=== PATIENT | female | born 1935 | race Caucasian/White ===

== ENCOUNTER → 2016-08-30 | Outpatient (CLI) | payer OTHER, MEDICAID ==
[~2016-08-30] MED LIST: ALBUAER3 IN; AMLO5TAB2 PO; ASPI81CH43 PO; ATOR20TA50 PO; DOCU100C8 PO; FLUT250M2 INH; GABA-494 PO; GLIM4TAB42 PO; HYDR200T36 PO; LOR05T PO; LOSA100T27 PO; MET50T PO; METF-312 PO; NIT04P TD; PANT40T PO; TRAM-300 PO
[2016-08-30 11:33] LABS: Basophils # (auto) 0 uL; Basophils % (auto) 0.8 % (0.0-2.0); Eosinophils # (auto) 0.2 uL; Eosinophils % (auto) 4.1 % (0.0-7.0); Hematocrit 34.8 % (36.0-46.0); Hemoglobin 11.5 g/dL (12.2-16.2); Lymphocytes # (auto) 0.7 uL; Lymphocytes % (auto) 16.3 % (10.0-50.0); Mean Corpuscular Hemoglobin 30.5 pg (28.0-32.0); Mean Corpuscular Volume 92.3 fL (80.0-100.0); Monocytes # (auto) 0.3 uL; Monocytes % (auto) 7.3 % (0.0-12.0); Neutrophils # (auto) 3.1 uL; Neutrophils % (auto) 71.5 % (37.0-80.0); Platelet Count (auto) 158 10^3/uL (140-450); Red Cell Distribution Width 14.8 % (11.6-16.0); White Blood Cell 4.3 10^3/uL (4.4-10.8)
[2016-08-30 12:03] LABS: Albumin 3.7 g/dL (3.4-5.0); BUN/Creatinine Ratio 34.7; Bilirubin, Total 0.4 mg/dL (0.2-1.0); Calcium 9.7 mg/dL (8.5-10.1); Potassium 4.6 mmol/L (3.5-5.1); Total Protein 6.7 g/dL (6.4-8.2)
== END | disposition home or self-care (01) ==
LOC: LAB 10:37
PROVIDERS: ATTEND Internal Medicine
DX: D61.818 Other pancytopenia (principal)
CPT/HCPCS: 36415; 80053; 82728; 83540; 83550; 83615; 85025

== ENCOUNTER 2016-09-26 17:53 | Emergency (ER) | payer OTHER, MEDICAID ==
[~2016-09-26] VITALS: Ht 165.1 cm; Wt 81.6 kg
[2016-09-26 18:20] VITALS: BP 158/68
== END 2016-09-26 22:06 | disposition left against medical advice (07) ==
LOC: ER 17:57
DX: R04.0 Epistaxis (principal); Z53.21 Procedure and treatment not carried out due to patient leaving prior to being seen by health care provider

== ENCOUNTER → 2016-11-21 | Outpatient (CLI) | payer OTHER, MEDICAID ==
[~2016-11-21] MED LIST changes: -METF-312 PO; +METF-370 PO
[2016-11-21 09:39] LABS: Basophils # (auto) 0 uL; Basophils % (auto) 0.7 % (0.0-2.0); Eosinophils # (auto) 0.2 uL; Hematocrit 37.2 % (36.0-46.0); Hemoglobin 12.2 g/dL (12.2-16.2); Lymphocytes # (auto) 0.7 uL; Lymphocytes % (auto) 17.7 % (10.0-50.0); Mean Corpuscular Hemoglobin 29.2 pg (28.0-32.0); Mean Corpuscular Hgb Conc. 32.8 g/dL (32.0-36.0); Mean Platelet Volume 9.9 fL (7.4-10.4); Monocytes # (auto) 0.3 uL; Monocytes % (auto) 6.7 % (0.0-12.0); Neutrophils # (auto) 2.7 uL; Neutrophils % (auto) 69.9 % (37.0-80.0); Platelet Count (auto) 149 10^3/uL (140-450); Red Cell Distribution Width 16.7 % (11.6-16.0); White Blood Cell 3.9 10^3/uL (4.4-10.8)
[2016-11-21 09:48] LABS: Albumin 3.6 g/dL (3.4-5.0); BUN/Creatinine Ratio 33.6; Bilirubin, Total 0.5 mg/dL (0.2-1.0); Calcium 9.5 mg/dL (8.5-10.1); Potassium 4.6 mmol/L (3.5-5.1); Total Protein 6.6 g/dL (6.4-8.2)
== END | disposition home or self-care (01) ==
LOC: LAB 08:12
PROVIDERS: ATTEND Internal Medicine
DX: E11.9 Type 2 diabetes mellitus without complications (principal); I10 Essential (primary) hypertension; I25.10 Atherosclerotic heart disease of native coronary artery without angina pectoris
CPT/HCPCS: 36415; 80053; 80061; 82607; 83036; 83540; 84439; 84443; 85025; 85652

== ENCOUNTER → 2017-07-11 | Outpatient (CLI) | payer OTHER, MEDICAID ==
[~2017-07-11] MED LIST changes: -GABA-494 PO; +GABA100C9 PO; -LOR05T PO; +LORA-654 PO
[2017-07-11 10:48] LABS: Basophils # (auto) 0 uL; Basophils % (auto) 0.8 % (0.0-2.0); Eosinophils # (auto) 0.1 uL; Eosinophils % (auto) 3.6 % (0.0-7.0); Hematocrit 38.3 % (36.0-46.0); Hemoglobin 12.5 g/dL (12.2-16.2); Lymphocytes # (auto) 0.8 uL; Lymphocytes % (auto) 19.7 % (10.0-50.0); Mean Corpuscular Hgb Conc. 32.6 g/dL (32.0-36.0); Monocytes # (auto) 0.3 uL; Monocytes % (auto) 8.1 % (0.0-12.0); Neutrophils # (auto) 2.6 uL; Neutrophils % (auto) 67.8 % (37.0-80.0); Nucleated Red Blood Cells % 0.1 %; Platelet Count (auto) 118 10^3/uL (140-450); Red Blood Cells 4.17 10^6/uL (4.0-5.20); Red Cell Distribution Width 14.4 % (11.8-14.3); White Blood Cell 3.8 10^3/uL (4.4-10.8)
[2017-07-11 10:55] LABS: Urine Bacteria FEW /hpf (None Seen); Urine Blood Negative /uL (Negative); Urine Mucus FEW (None Seen); Urine Specific Gravity 1.021 (1.001-1.035); Urine WBC 9 /hpf (0 - 5)
[2017-07-11 11:08] LABS: BUN/Creatinine Ratio 23.6; Bilirubin, Total 0.6 mg/dL (0.2-1.0); Calcium 9.1 mg/dL (8.5-10.1); Potassium 4.6 mmol/L (3.5-5.1); Total Protein 7.3 g/dL (6.4-8.2); Uric Acid 5.5 mg/dL (2.6-6.0)
== END | disposition home or self-care (01) ==
LOC: LAB 10:21
PROVIDERS: ATTEND Internal Medicine
DX: E11.9 Type 2 diabetes mellitus without complications (principal); E78.00 Pure hypercholesterolemia, unspecified
CPT/HCPCS: 36415; 80053; 81001; 82043; 83036; 83721; 83970; 84550; 85025

== ENCOUNTER → 2017-10-08 | Outpatient (CLI) | payer OTHER, MEDICAID ==
[2017-10-08 14:50] LABS: Basophils # (auto) 0 uL; Basophils % (auto) 0.6 % (0.0-2.0); Eosinophils # (auto) 0.1 uL; Eosinophils % (auto) 3.2 % (0.0-7.0); Hematocrit 37.4 % (36.0-46.0); Hemoglobin 12.3 g/dL (12.2-16.2); Lymphocytes # (auto) 0.6 uL; Lymphocytes % (auto) 14.4 % (10.0-50.0); Mean Corpuscular Hemoglobin 29.9 pg (28.0-32.0); Mean Corpuscular Hgb Conc. 32.8 g/dL (32.0-36.0); Mean Corpuscular Volume 91.3 fL (80.0-100.0); Monocytes # (auto) 0.4 uL; Monocytes % (auto) 8.5 % (0.0-12.0); Neutrophils # (auto) 3.3 uL; Neutrophils % (auto) 73.3 % (37.0-80.0); Nucleated Red Blood Cells % 0.2 %; Platelet Count (auto) 106 10^3/uL (140-450); Red Cell Distribution Width 16.4 % (11.8-14.3); White Blood Cell 4.5 10^3/uL (4.4-10.8)
[2017-10-08 15:37] LABS: Potassium 4.6 mmol/L (3.5-5.1)
[2017-10-08 15:42] LABS: Albumin 3.9 g/dL (3.4-5.0); BUN/Creatinine Ratio 28.1; Calcium 9.4 mg/dL (8.5-10.1); Magnesium 1.9 mg/dL (1.6-2.6)
[2017-10-08 15:44] LABS: Bilirubin, Total 0.4 mg/dL (0.2-1.0); Total Protein 7.1 g/dL (6.4-8.2)
== END | disposition home or self-care (01) ==
LOC: LAB 14:22
PROVIDERS: ATTEND Internal Medicine
DX: E11.22 Type 2 diabetes mellitus with diabetic chronic kidney disease (principal); I12.9 Hypertensive chronic kidney disease with stage 1 through stage 4 chronic kidney disease, or unspecified chronic kidney disease; N18.3 Chronic kidney disease, stage 3 (moderate); D61.818 Other pancytopenia; E78.00 Pure hypercholesterolemia, unspecified; J44.9 Chronic obstructive pulmonary disease, unspecified; E78.5 Hyperlipidemia, unspecified
CPT/HCPCS: 36415; 80053; 82728; 83036; 83540; 83615; 83735; 85025

== ENCOUNTER → 2018-02-11 | Outpatient (CLI) | payer OTHER, MEDICAID ==
[2018-02-11 14:13] LABS: Basophils # (auto) 0 uL; Basophils % (auto) 0.6 % (0.0-2.0); Eosinophils # (auto) 0 uL; Eosinophils % (auto) 0.8 % (0.0-7.0); Hematocrit 36.4 % (36.0-46.0); Lymphocytes # (auto) 0.4 uL; Lymphocytes % (auto) 7.9 % (10.0-50.0); Mean Corpuscular Hemoglobin 30.3 pg (28.0-32.0); Mean Corpuscular Hgb Conc. 32.9 g/dL (32.0-36.0); Mean Corpuscular Volume 92.1 fL (80.0-100.0); Monocytes # (auto) 0.5 uL; Monocytes % (auto) 10.6 % (0.0-12.0); Neutrophils % (auto) 80.1 % (37.0-80.0); Platelet Count (auto) 134 10^3/uL (140-450); Red Blood Cells 3.95 10^6/uL (4.0-5.20)
[2018-02-11 15:36] LABS: Albumin 3.6 g/dL (3.4-5.0); BUN/Creatinine Ratio 20.5; Bilirubin, Total 0.5 mg/dL (0.2-1.0); Calcium 9.5 mg/dL (8.5-10.1); Potassium 4.4 mmol/L (3.5-5.1); Total Protein 7.5 g/dL (6.4-8.2); Uric Acid 4.3 mg/dL (2.6-6.0)
== END | disposition home or self-care (01) ==
LOC: LAB 13:34
PROVIDERS: ATTEND Internal Medicine
DX: I13.0 Hypertensive heart and chronic kidney disease with heart failure and stage 1 through stage 4 chronic kidney disease, or unspecified chronic kidney disease (principal); E11.22 Type 2 diabetes mellitus with diabetic chronic kidney disease; N18.3 Chronic kidney disease, stage 3 (moderate); M06.4 Inflammatory polyarthropathy; J44.9 Chronic obstructive pulmonary disease, unspecified
CPT/HCPCS: 36415; 80053; 83036; 84550; 85025; 86225; 86235; 87086; 87088; 87186

== ENCOUNTER → 2018-03-04 | Outpatient (CLI) | payer OTHER, MEDICAID ==
[~2018-03-04] MED LIST changes: +AMLO5TAB13 PO; -AMLO5TAB2 PO; +LOSA-49 PO; -LOSA100T27 PO
[2018-03-04 13:37] LABS: Basophils # (auto) 0 uL; Basophils % (auto) 0.6 % (0.0-2.0); Eosinophils # (auto) 0.1 uL; Eosinophils % (auto) 3.4 % (0.0-7.0); Hematocrit 38.3 % (36.0-46.0); Hemoglobin 12.3 g/dL (12.2-16.2); Lymphocytes # (auto) 0.6 uL; Lymphocytes % (auto) 15.8 % (10.0-50.0); Mean Corpuscular Hgb Conc. 32.2 g/dL (32.0-36.0); Mean Corpuscular Volume 93.2 fL (80.0-100.0); Monocytes # (auto) 0.3 uL; Monocytes % (auto) 7.8 % (0.0-12.0); Neutrophils % (auto) 72.4 % (37.0-80.0); Platelet Count (auto) 121 10^3/uL (140-450); Red Blood Cells 4.11 10^6/uL (4.0-5.20); White Blood Cell 4.1 10^3/uL (4.4-10.8)
[2018-03-04 14:27] LABS: Albumin 3.7 g/dL (3.4-5.0); BUN/Creatinine Ratio 29.1; Bilirubin, Total 0.4 mg/dL (0.2-1.0); Calcium 9.7 mg/dL (8.5-10.1); Potassium 4.4 mmol/L (3.5-5.1); Total Protein 7.2 g/dL (6.4-8.2)
[2018-03-04 14:36] LABS: % Iron Saturation 24.7 % (15-50)
== END | disposition home or self-care (01) ==
LOC: LAB 13:11
PROVIDERS: ATTEND Internal Medicine
DX: D61.818 Other pancytopenia (principal)
CPT/HCPCS: 36415; 80053; 83540; 83550; 83615; 85025

== ENCOUNTER → 2018-05-27 | Outpatient (CLI) | payer OTHER, MEDICAID | END | disposition home or self-care (01) | LOC: XYW 08:43 | PROVIDERS: ATTEND Internal Medicine | DX: Z01.818 Encounter for other preprocedural examination (principal); M17.11 Unilateral primary osteoarthritis, right knee; S83.249A Other tear of medial meniscus, current injury, unspecified knee, initial encounter; X58.XXXA Exposure to other specified factors, initial encounter; Y93.9 Activity, unspecified; Y92.9 Unspecified place or not applicable; Y99.9 Unspecified external cause status | CPT/HCPCS: 93306 ==

== ENCOUNTER → 2018-06-04 | Outpatient (CLI) | payer OTHER, MEDICAID | END | disposition home or self-care (01) | LOC: XY 07:57 | PROVIDERS: ATTEND Internal Medicine | DX: I65.29 Occlusion and stenosis of unspecified carotid artery (principal); R09.89 Other specified symptoms and signs involving the circulatory and respiratory systems; I12.9 Hypertensive chronic kidney disease with stage 1 through stage 4 chronic kidney disease, or unspecified chronic kidney disease; N18.9 Chronic kidney disease, unspecified; I50.9 Heart failure, unspecified | CPT/HCPCS: 93886 ==

== ENCOUNTER 2018-07-28 12:35 | Inpatient (IN) | payer OTHER, MEDICAID ==
[~2018-07-28] VITALS: Ht 162.6 cm; Wt 98.0 kg
[2018-07-28 13:35] LABS: Basophils # (auto) 0 uL; Basophils % (auto) 0.5 % (0.0-2.0); Eosinophils # (auto) 0 uL; Eosinophils % (auto) 0.7 % (0.0-7.0); Hematocrit 34.1 % (36.0-46.0); Lymphocytes # (auto) 0.4 uL; Lymphocytes % (auto) 6.1 % (10.0-50.0); Mean Corpuscular Hemoglobin 27.3 pg (28.0-32.0); Mean Corpuscular Hgb Conc. 32.1 g/dL (32.0-36.0); Monocytes # (auto) 0.5 uL; Neutrophils # (auto) 5.5 uL; Neutrophils % (auto) 84.7 % (37.0-80.0); Platelet Count (auto) 150 10^3/uL (140-450); Red Blood Cells 4.01 10^6/uL (4.0-5.20); Red Cell Distribution Width 16.5 % (11.8-14.3); White Blood Cell 6.5 10^3/uL (4.4-10.8)
[2018-07-28 13:53] LABS: Albumin 3.4 g/dL (3.4-5.0); Calcium 9.3 mg/dL (8.5-10.1); Magnesium 2.2 mg/dL (1.6-2.6); Potassium 3.5 mmol/L (3.5-5.1)
[2018-07-28 14:02] LABS: BUN/Creatinine Ratio 14.9; Bilirubin, Total 0.7 mg/dL (0.2-1.0); Total Protein 7.4 g/dL (6.4-8.2)
[2018-07-28] MEDS ORDERED: LEVOFLOXACIN 500MG 100 ML IV ONE (15:45)
[2018-07-28 17:14] LABS: Lactic Acid w/Reflex 2.9 mmol/L (0.4-2.0)
[2018-07-28] MEDS ORDERED: NITROGLYCERIN 0.4 MG SL TAB SL PRN (17:30)
[2018-07-28] MEDS ORDERED: traMADol HCL 50 MG TAB PO PRN (17:30)
[2018-07-28] MEDS ORDERED: MORPHINE SULFATE 4 MG/ML SYR/VIAL IV PRN (17:30)
[2018-07-28] MEDS ORDERED: DEXTROSE (50%) 50ML SYRG IV PRN (17:30)
[2018-07-28] MEDS: cefTRIAXone 1GM/50ML D5W 50 ML IV SCH (20:15)
[2018-07-28] MEDS: AZITHROMYCIN 500MG/ 250ML 250 ML IV SCH (20:27)
[2018-07-28 20:35] VITALS: BP 139/86
--- NOTE | 2018-07-28 20:35 | NUR ---
Telemetry admit from ER LAI DECKER admitted to Telemetry unit after SBAR received. Patient oriented to Mallory Leal, primary RN, unit, room, bed, and unit policies regarding patient care and visiting hours. Patient now on continuous telemetry monitoring, tele box #5 and telemetry reading on arrival to unit is SR [id number] with Twave depression . Patient placed on bedside oxygen, weighed by bed scale and encouraged to call if they need something. Patient is in bed, bed is locked in lowest position, bed rails up x2, head of bed is up >30 for safety precautions. Bedside table within reach, call light within reach. All questions and concerns addressed, patient verbalized understanding.
--- NOTE | 2018-07-28 20:45 | NUR ---
PATIENT IS WEARING DIAPER INFORMED PATIENT THAT THIS IS A [facility]APER [facility] AND THE SKIN BREAK RISKS ASSOCIATED WITH WEARING A DIAPER. PATIENT VERBALIZED UNDERSTANDING BUT REFUSED TO TAKE IT OFF. SHE STATES THAT SHE USES IT FOR SECURITY DURING THE NIGHT. PATIENT IS AMBULATORY WITH ASSIST AND USES THE TOILET. INSTRUCTED PATIENT TO USE CALL LIGHT FOR ASSISTANCE TO THE BATHROOM.
--- NOTE | 2018-07-28 21:00 | NUR ---
PATIENT VALUABLES IN SAFE PER PATIENT REQUEST [place] COUNTED AND VERIFIED WITH SECOND NURSE, CREDIT CARDS, CHECKBOOK, WALLET, CA ID, AND WATCHED PLACED IN PERSONAL BELONGINGS ENVELOPE AND SEALED. PERSONAL FINANCIAL REPRESENTATIVE RECEIVED VALUABLES AND SIGNED FORM. FORM IN HARD CHART, COPY GIVEN TO PATIENT.
[2018-07-28 21:51] VITALS: BP 139/86
[2018-07-28] MEDS: ATORVASTATIN 20 MG TAB PO SCH (22:22)
[2018-07-28] MEDS: METOPROLOL TARTRATE 25 MG TAB PO SCH (22:22)
[2018-07-28] MEDS: HYDROXYCHLOROQUINE SULFATE 200 MG TAB PO SCH (22:22)
[2018-07-28] MEDS: InsuLIN REG 1unit/0.01ml Soln (100units/ml) SC SCH (22:23)
[2018-07-28] MEDS: ACCU-CHEK COMFORT CURVE STRIP VI SCH (22:23)
[2018-07-29 05:47] VITALS: BP 142/69
[2018-07-29] MEDS: InsuLIN REG 1unit/0.01ml Soln (100units/ml) SC SCH ×4 (06:39→22:10)
[2018-07-29] MEDS: ACCU-CHEK COMFORT CURVE STRIP VI SCH ×4 (06:39→22:09)
[2018-07-29 07:21] LABS: Basophils # (auto) 0 uL; Basophils % (auto) 0.7 % (0.0-2.0); Eosinophils # (auto) 0.1 uL; Eosinophils % (auto) 2.5 % (0.0-7.0); Hematocrit 31.7 % (36.0-46.0); Hemoglobin 10.3 g/dL (12.2-16.2); Lymphocytes # (auto) 0.7 uL; Lymphocytes % (auto) 13.1 % (10.0-50.0); Mean Corpuscular Hemoglobin 27.1 pg (28.0-32.0); Mean Corpuscular Hgb Conc. 32.3 g/dL (32.0-36.0); Mean Corpuscular Volume 83.8 fL (80.0-100.0); Monocytes # (auto) 0.5 uL; Monocytes % (auto) 9.1 % (0.0-12.0); Neutrophils # (auto) 3.8 uL; Neutrophils % (auto) 74.6 % (37.0-80.0); Platelet Count (auto) 137 10^3/uL (140-450); Red Blood Cells 3.79 10^6/uL (4.0-5.20); Red Cell Distribution Width 16.1 % (11.8-14.3); White Blood Cell 5.1 10^3/uL (4.4-10.8)
[2018-07-29 07:29] LABS: Potassium 4.2 mmol/L (3.5-5.1)
--- NOTE | 2018-07-29 07:30 | NUR ---
OPENING NOTE Assumed care of patient from NOC RN. Patient awake and alert with no S/S of distress/SOB or pain. Instructed on POC and to call for assist PRN, verbalized understanding. Bed in lowest, locked position with side rails up x2. Fall precautions in place and call light within reach. Will continue to monitor for changes Q1hr and PRN.
[2018-07-29 07:34] LABS: BUN/Creatinine Ratio 23.4; Calcium 9.1 mg/dL (8.5-10.1)
[2018-07-29 09:10] VITALS: BP 139/63
[2018-07-29] MEDS ORDERED: amLODIPine BESYLATE 5 MG TAB PO SCH (10:00)
[2018-07-29] MEDS: METOPROLOL TARTRATE 25 MG TAB PO SCH ×2 (10:00→22:02)
[2018-07-29] MEDS: ASPirin 81 mg TAB PO SCH (10:04)
[2018-07-29] MEDS: cefTRIAXone 1GM/50ML D5W 50 ML IV SCH (10:04)
[2018-07-29] MEDS: HYDROXYCHLOROQUINE SULFATE 200 MG TAB PO SCH ×2 (10:05→22:00)
[2018-07-29] MEDS: PANTOPRAZOLE 40 MG TAB PO SCH (10:05)
[2018-07-29] MEDS: HYDROcodone-ACET 7.5/325MG TAB PO PRN ×2 (10:15→19:57)
--- NOTE | 2018-07-29 11:24 | NUR ---
IV REMOVAL/INSERTION IV DC'd with clean sterile technique, catheter fully intact. Pressure dressing applied to site. IV access obtained, via clean sterile technique by inserting 22 gauge catheter at left wrist after 1 attempt. IV secured properly. No trauma to site. Patient tolerated well.
[2018-07-29] MEDS: AZITHROMYCIN 500MG/ 250ML 250 ML IV SCH (12:23)
[2018-07-29 13:06] VITALS: BP 139/65
[2018-07-29 17:00] VITALS: BP 115/65
--- NOTE | 2018-07-29 18:22 | NUR ---
URINE Urine specimen collected and sent to lab via bullet.
--- NOTE | 2018-07-29 19:35 | NUR ---
CLOSING NOTE Endorsed care of patient to NOC Deanne OVALLE.
--- NOTE | 2018-07-29 19:55 | NUR ---
RECEIVED PT FROM DAY RN POC REVIEWED
[2018-07-29 20:04] LABS: Urine Bacteria NONE SEEN /hpf (None Seen); Urine Blood Negative /uL (Negative); Urine Specific Gravity 1.016 (1.001-1.035); Urine WBC 4 /hpf (0 - 5)
[2018-07-29 21:50] VITALS: BP 134/50
[2018-07-29] MEDS: ATORVASTATIN 20 MG TAB PO SCH (22:02)
--- NOTE | 2018-07-29 23:28 | NUR ---
PT C/O ITCHING NO S/S OF REDNESS, WILL NOTIFY HOSPITALIST PT WANTS BENADRYL
--- NOTE | 2018-07-29 23:40 | NUR ---
ORDER RECEIVED FOR PO BENADRYL
[2018-07-30] MEDS ORDERED: diphenhdrAMINE HCL 25 MG CAP PO PRN (00:30)
[2018-07-30] MEDS: LORazepam 0.5 MG TAB PO PRN ×2 (00:33→22:38)
--- NOTE | 2018-07-30 00:41 | NUR ---
RESTING WITH EYES CLOSED NO C/O ITCHING AT THIS TIME
[2018-07-30 05:00] VITALS: BP 159/62
[2018-07-30 07:00] LABS: BUN/Creatinine Ratio 25.2; Calcium 9.4 mg/dL (8.5-10.1); Potassium 4.5 mmol/L (3.5-5.1)
[2018-07-30] MEDS: InsuLIN REG 1unit/0.01ml Soln (100units/ml) SC SCH ×3 (07:01→17:30)
[2018-07-30] MEDS: ACCU-CHEK COMFORT CURVE STRIP VI SCH ×4 (07:02→22:50)
--- NOTE | 2018-07-30 07:04 | NUR ---
report given to am nurse poc reviewed
--- NOTE | 2018-07-30 07:20 | NUR ---
Opening Shift Note Assumed care of patient, awake and alert. No S/S of distress/SOB or pain. Instructed on POC and to call for assist PRN, will continue to monitor for changes Q1hr and PRN.
[2018-07-30 08:00] VITALS: BP 140/66
[2018-07-30 08:32] VITALS: BP 140/66
[2018-07-30] MEDS: cefTRIAXone 1GM/50ML D5W 50 ML IV SCH (08:59)
[2018-07-30] MEDS: amLODIPine BESYLATE 5 MG TAB PO SCH (09:04)
[2018-07-30] MEDS: PANTOPRAZOLE 40 MG TAB PO SCH (09:04)
[2018-07-30] MEDS: METOPROLOL TARTRATE 25 MG TAB PO SCH ×2 (09:05→22:00)
[2018-07-30] MEDS: HYDROXYCHLOROQUINE SULFATE 200 MG TAB PO SCH ×2 (09:05→22:35)
[2018-07-30] MEDS: ASPirin 81 mg TAB PO SCH (09:05)
--- NOTE | 2018-07-30 09:45 | NUR ---
IV removal IV DC'd with clean sterile technique, catheter fully intact. Pressure dressing applied to site. Patient tolerated well. NOTE: [] IV insertion IV access obtained, via clean sterile technique by inserting 22 gauge catheter at right wrist after 2 attempts. IV secured properly. No trauma to site. Patient tolerated well. NOTE: []
[2018-07-30] MEDS: AZITHROMYCIN 500MG/ 250ML 250 ML IV SCH (11:31)
[2018-07-30] MEDS: HYDROcodone-ACET 7.5/325MG TAB PO PRN ×2 (14:06→22:47)
[2018-07-30 14:45] VITALS: BP 142/76
[2018-07-30] MEDS: THROAT LOZENGES(CEPASTAT) MT PRN ×2 (14:51→22:50)
[2018-07-30 16:48] VITALS: BP 131/82
--- NOTE | 2018-07-30 19:53 | NUR ---
RECEIVED PT FROM DAY RN POC REVIEWED
[2018-07-30 22:00] VITALS: BP 133/48
[2018-07-30] MEDS: ATORVASTATIN 20 MG TAB PO SCH (22:34)
--- NOTE | 2018-07-30 23:15 | NUR ---
THROAT LOZENGERS GIVEN ORDERED, C/O SORE THROAT
[2018-07-31] MEDS: InsuLIN REG 1unit/0.01ml Soln (100units/ml) SC SCH ×3 (02:24→12:04)
[2018-07-31 05:00] VITALS: BP 146/52
[2018-07-31] MEDS: ACCU-CHEK COMFORT CURVE STRIP VI SCH ×2 (06:49→12:04)
--- NOTE | 2018-07-31 07:06 | NUR ---
report given to am nurse poc reviewed
[2018-07-31 08:00] VITALS: BP 149/82
[2018-07-31 09:00] VITALS: BP 149/82
[2018-07-31] MEDS: cefTRIAXone 1GM/50ML D5W 50 ML IV SCH (09:16)
[2018-07-31] MEDS: PANTOPRAZOLE 40 MG TAB PO SCH (09:16)
[2018-07-31] MEDS: METOPROLOL TARTRATE 25 MG TAB PO SCH (09:17)
[2018-07-31] MEDS: amLODIPine BESYLATE 5 MG TAB PO SCH (09:17)
[2018-07-31] MEDS: ASPirin 81 mg TAB PO SCH (09:17)
[2018-07-31] MEDS: HYDROXYCHLOROQUINE SULFATE 200 MG TAB PO SCH (09:18)
[2018-07-31] MEDS: AZITHROMYCIN 500MG/ 250ML 250 ML IV SCH (10:37)
--- NOTE | 2018-07-31 13:12 | NUR ---
Discharge from Med Surg Discharge instructions given as ordered. Encourage to follow up with PMD as instructed. All questions and concerns addressed. Patient verbalized understanding. IV removed with catheter intact, pressure dressing applied. Items in safe returned to patient. Patient taken to vehicle via wheelchair with all personal belongings, accompanied by staff and family member. No distress noted at time of departure.
== END 2018-07-31 13:12 | disposition home or self-care (01) | DRG 193 ==
LOC: ER 12:42 → TELE 17:36 → TELE-WESTW 20:32 → WEST WING 07-30 23:02
PROVIDERS: ADMIT Internal Medicine; ATTEND Internal Medicine
DX: J18.9 Pneumonia, unspecified organism (principal); N17.0 Acute kidney failure with tubular necrosis; I50.42 Chronic combined systolic (congestive) and diastolic (congestive) heart failure; J44.0 Chronic obstructive pulmonary disease with (acute) lower respiratory infection; I13.0 Hypertensive heart and chronic kidney disease with heart failure and stage 1 through stage 4 chronic kidney disease, or unspecified chronic kidney disease; D64.9 Anemia, unspecified; E11.22 Type 2 diabetes mellitus with diabetic chronic kidney disease; E11.65 Type 2 diabetes mellitus with hyperglycemia; E66.9 Obesity, unspecified; E78.5 Hyperlipidemia, unspecified; I25.10 Atherosclerotic heart disease of native coronary artery without angina pectoris; M06.4 Inflammatory polyarthropathy; N18.9 Chronic kidney disease, unspecified; R32 Unspecified urinary incontinence; Z68.37 Body mass index [BMI] 37.0-37.9, adult; Z79.4 Long term (current) use of insulin; Z86.73 Personal history of transient ischemic attack (TIA), and cerebral infarction without residual deficits; Z95.1 Presence of aortocoronary bypass graft; Z90.710 Acquired absence of both cervix and uterus; Z90.49 Acquired absence of other specified parts of digestive tract; Z88.5 Allergy status to narcotic agent; Z88.6 Allergy status to analgesic agent; Z88.2 Allergy status to sulfonamides; Z88.8 Allergy status to other drugs, medicaments and biological substances
CPT/HCPCS: 36415; 71045; 71046; 80048; 80053; 81001; 82962; 83036; 83605; 83735; 84443; 84484; 85025; 87040; 87086; 93005; 93306; 96365; 96368; 97163; G0378; J0696; J1815; J1956

== ENCOUNTER → 2018-08-14 | Outpatient (CLI) | payer OTHER, MEDICAID ==
[2018-08-14 11:45] LABS: Basophils # (auto) 0 uL; Eosinophils # (auto) 0.2 uL; Hemoglobin 11.2 g/dL (12.2-16.2); Lymphocytes # (auto) 0.6 uL; Lymphocytes % (auto) 13.1 % (10.0-50.0)
[2018-08-14 11:50] LABS: Basophils % (auto) 0.8 % (0.0-2.0); Eosinophils % (auto) 4.6 % (0.0-7.0); Hematocrit 35.4 % (36.0-46.0); Mean Corpuscular Hemoglobin 26.7 pg (28.0-32.0); Mean Corpuscular Hgb Conc. 31.6 g/dL (32.0-36.0); Mean Corpuscular Volume 84.6 fL (80.0-100.0); Monocytes # (auto) 0.4 uL; Monocytes % (auto) 7.6 % (0.0-12.0); Neutrophils # (auto) 3.5 uL; Neutrophils % (auto) 73.9 % (37.0-80.0); Platelet Count (auto) 144 10^3/uL (140-450); Red Blood Cells 4.18 10^6/uL (4.0-5.20); Red Cell Distribution Width 17.7 % (11.8-14.3); White Blood Cell 4.8 10^3/uL (4.4-10.8)
[2018-08-14 12:51] LABS: Albumin 3.7 g/dL (3.4-5.0); Potassium 4.6 mmol/L (3.5-5.1)
[2018-08-14 12:54] LABS: BUN/Creatinine Ratio 23.3; Bilirubin, Total 0.4 mg/dL (0.2-1.0); Calcium 9.8 mg/dL (8.5-10.1); Total Protein 7.2 g/dL (6.4-8.2)
[2018-08-14 13:01] LABS: % Iron Saturation 10.8 % (15-50)
== END | disposition home or self-care (01) ==
LOC: LAB 11:23
PROVIDERS: ATTEND Internal Medicine
DX: D61.818 Other pancytopenia (principal)
CPT/HCPCS: 36415; 80053; 83540; 83550; 83615; 85025

== ENCOUNTER → 2019-01-04 | Outpatient (CLI) | payer OTHER, MEDICAID ==
[~2019-01-04] MED LIST changes: +ALBUTEROL SULF 2.5 MG/0.5ML(0.5%) NEB SOLN ONE; -AMLO5TAB13 PO; +AMLO5TAB15 PO; -LORA-654 PO; +LORA0.5T12 PO; +LOSA-39 PO; -LOSA-49 PO
== END | disposition home or self-care (01) ==
LOC: RT 08:53
PROVIDERS: ATTEND Internal Medicine Pulmonary Disease
DX: J45.909 Unspecified asthma, uncomplicated (principal)
CPT/HCPCS: 94010; J7611

== ENCOUNTER → 2019-01-22 | Outpatient (CLI) | payer OTHER, MEDICAID ==
[~2019-01-22] MED LIST changes: -ALBUTEROL SULF 2.5 MG/0.5ML(0.5%) NEB SOLN ONE
[2019-01-22 09:53] LABS: Basophils # (auto) 0 uL; Basophils % (auto) 0.9 % (0.0-2.0); Eosinophils # (auto) 0.2 uL; Eosinophils % (auto) 4.4 % (0.0-7.0); Hematocrit 38.2 % (36.0-46.0); Hemoglobin 12.5 g/dL (12.2-16.2); Lymphocytes # (auto) 0.6 uL; Lymphocytes % (auto) 11.8 % (10.0-50.0); Mean Corpuscular Hemoglobin 29.7 pg (28.0-32.0); Mean Corpuscular Hgb Conc. 32.8 g/dL (32.0-36.0); Mean Corpuscular Volume 90.7 fL (80.0-100.0); Monocytes # (auto) 0.4 uL; Monocytes % (auto) 8.3 % (0.0-12.0); Neutrophils # (auto) 3.5 uL; Neutrophils % (auto) 74.6 % (37.0-80.0); Platelet Count (auto) 129 10^3/uL (140-450); Red Blood Cells 4.22 10^6/uL (4.0-5.20); Red Cell Distribution Width 16.7 % (11.8-14.3); White Blood Cell 4.7 10^3/uL (4.4-10.8)
[2019-01-22 10:14] LABS: Urine Bacteria FEW /hpf (None Seen); Urine Blood Negative /uL (Negative); Urine Mucus FEW (None Seen); Urine Specific Gravity 1.018 (1.001-1.035); Urine WBC 34 /hpf (0 - 5)
[2019-01-22 10:27] LABS: Potassium 4.8 mmol/L (3.5-5.1)
[2019-01-22 10:28] LABS: Free T4 (Free Thyroxine) 1.18 ng/dL (0.89-1.76)
[2019-01-22 10:40] LABS: Albumin 3.9 g/dL (3.4-5.0); BUN/Creatinine Ratio 28.3; Bilirubin, Total 0.5 mg/dL (0.2-1.0); Calcium 9.9 mg/dL (8.5-10.1); Total Protein 7.2 g/dL (6.4-8.2)
[2019-01-22 10:43] LABS: % Iron Saturation 17.2 % (15-50)
== END | disposition home or self-care (01) ==
LOC: LAB 08:56
PROVIDERS: ATTEND Internal Medicine
DX: E11.9 Type 2 diabetes mellitus without complications (principal); I10 Essential (primary) hypertension; D61.818 Other pancytopenia
CPT/HCPCS: 36415; 80053; 80061; 81001; 82043; 82607; 83036; 83540; 83550; 84439; 84443; 85025; 85652

== ENCOUNTER → 2019-06-01 | Outpatient (CLI) | payer OTHER, MEDICAID ==
[~2019-06-01] MED LIST changes: -NIT04P TD; +[UNRECOGNIZED DRUG - CODE] TD
[2019-06-01 16:22] LABS: Basophils # (auto) 0 uL; Basophils % (auto) 0.9 % (0.0-2.0); Eosinophils # (auto) 0.2 uL; Eosinophils % (auto) 5.4 % (0.0-7.0); Hematocrit 34.4 % (36.0-46.0); Hemoglobin 11.3 g/dL (12.2-16.2); Lymphocytes # (auto) 0.7 uL; Lymphocytes % (auto) 15.8 % (10.0-50.0); Mean Corpuscular Hgb Conc. 32.8 g/dL (32.0-36.0); Mean Corpuscular Volume 91.6 fL (80.0-100.0); Monocytes # (auto) 0.4 uL; Neutrophils % (auto) 68.9 % (37.0-80.0); Nucleated Red Blood Cells % 0.1 %; Platelet Count (auto) 138 10^3/uL (140-450); Red Blood Cells 3.76 10^6/uL (4.0-5.20); Red Cell Distribution Width 14.7 % (11.8-14.3); White Blood Cell 4.4 10^3/uL (4.4-10.8)
[2019-06-01 16:50] LABS: Albumin 3.7 g/dL (3.4-5.0); Potassium 4.9 mmol/L (3.5-5.1)
[2019-06-01 16:53] LABS: % Iron Saturation 11.2 % (15-50)
[2019-06-01 16:55] LABS: BUN/Creatinine Ratio 22.1; Bilirubin, Total 0.3 mg/dL (0.2-1.0)
[2019-06-01 16:59] LABS: Ferritin 13.4 ng/mL (10-322)
[2019-06-01 17:00] LABS: Folate (Folic Acid) 11.9 ng/mL (5.38-24)
== END | disposition home or self-care (01) ==
LOC: LAB 15:26
PROVIDERS: ATTEND Internal Medicine
DX: D61.818 Other pancytopenia (principal); D64.9 Anemia, unspecified
CPT/HCPCS: 36415; 80053; 82607; 82728; 82746; 83540; 83550; 85025

== ENCOUNTER → 2019-07-05 | Outpatient (CLI) | payer OTHER, MEDICAID | END | disposition home or self-care (01) | LOC: LAB 10:25 | PROVIDERS: ATTEND Internal Medicine | DX: E11.21 Type 2 diabetes mellitus with diabetic nephropathy (principal) | CPT/HCPCS: 36415; 83036 ==

== ENCOUNTER → 2019-12-10 | Outpatient (CLI) | payer OTHER, MEDICAID ==
[~2019-12-10] MED LIST changes: -LORA0.5T12 PO; +LORA0.5T20 PO
[2019-12-10 16:17] LABS: Basophils # (auto) 0.1 10 ^3/uL (0-0.2); Basophils % (auto) 1.2 % (0.0-2.0); Eosinophils # (auto) 0.2 10 ^3/uL (0-0.8); Eosinophils % (auto) 5.2 % (0.0-7.0); Hematocrit 41.3 % (36.0-46.0); Hemoglobin 13.3 g/dL (12.2-16.2); Lymphocytes # (auto) 0.7 10 ^3/uL (0.4-5.4); Lymphocytes % (auto) 16.9 % (10.0-50.0); Mean Corpuscular Hemoglobin 29.7 pg (28.0-32.0); Mean Corpuscular Hgb Conc. 32.2 g/dL (32.0-36.0); Mean Corpuscular Volume 92.3 fL (80.0-100.0); Monocytes # (auto) 0.4 10 ^3/uL (0-1.3); Monocytes % (auto) 9.4 % (0.0-12.0); Neutrophils # (auto) 2.8 10 ^3/uL (1.6-8.6); Neutrophils % (auto) 67.3 % (37.0-80.0); Nucleated Red Blood Cells % 0.1 %; Platelet Count (auto) 150 10^3/uL (140-450); Red Blood Cells 4.47 10^6/uL (4.0-5.20); Red Cell Distribution Width 18.4 % (11.8-14.3); White Blood Cell 4.2 10^3/uL (4.4-10.8)
[2019-12-10 16:39] LABS: Albumin 3.9 g/dL (3.4-5.0); Calcium 9.6 mg/dL (8.5-10.1); Potassium 4.8 mmol/L (3.5-5.1)
[2019-12-10 16:44] LABS: BUN/Creatinine Ratio 22.8
[2019-12-10 16:50] LABS: Bilirubin, Total 0.4 mg/dL (0.2-1.0); Total Protein 7.5 g/dL (6.4-8.2)
[2019-12-13 13:14] LABS: Urine Bacteria MANY /hpf (None Seen); Urine Blood Negative /uL (Negative); Urine Specific Gravity 1.022 (1.001-1.035); Urine WBC 8 /hpf (0 - 5)
== END | disposition home or self-care (01) ==
LOC: LAB 15:52
PROVIDERS: ATTEND Internal Medicine
DX: E11.9 Type 2 diabetes mellitus without complications (principal); I10 Essential (primary) hypertension; M19.90 Unspecified osteoarthritis, unspecified site
CPT/HCPCS: 36415; 80053; 81001; 83036; 85025; 85652; 86200; 86225; 86235

== ENCOUNTER 2020-05-19 13:06 | Emergency (ER) | payer OTHER, MEDICAID ==
[~2020-05-19] VITALS: Ht 162.6 cm; Wt 99.8 kg
[2020-05-19] MEDS ORDERED: SODIUM CHLORIDE 0.9% 1,000 ML IV ONE (13:30)
[2020-05-19 14:31] LABS: Basophils # (auto) 0 10 ^3/uL (0-0.2); Basophils % (auto) 0.4 % (0.0-2.0); Eosinophils # (auto) 0 10 ^3/uL (0-0.8); Eosinophils % (auto) 0.1 % (0.0-7.0); Hematocrit 37.6 % (36.0-46.0); Hemoglobin 12.2 g/dL (12.2-16.2); Lymphocytes # (auto) 0.4 10 ^3/uL (0.4-5.4); Mean Corpuscular Hemoglobin 30.1 pg (28.0-32.0); Mean Corpuscular Hgb Conc. 32.5 g/dL (32.0-36.0); Mean Corpuscular Volume 92.8 fL (80.0-100.0); Monocytes # (auto) 0.7 10 ^3/uL (0-1.3); Monocytes % (auto) 7.3 % (0.0-12.0); Neutrophils % (auto) 88.2 % (37.0-80.0); Nucleated Red Blood Cells % 0.1 %; Platelet Count (auto) 120 10^3/uL (140-450); Red Blood Cells 4.05 10^6/uL (4.0-5.20); Red Cell Distribution Width 15.5 % (11.8-14.3); White Blood Cell 9.1 10^3/uL (4.4-10.8)
[2020-05-19 14:46] LABS: Albumin 3.6 g/dL (3.4-5.0); Calcium 9.1 mg/dL (8.5-10.1); Potassium 4.5 mmol/L (3.5-5.1)
[2020-05-19 14:52] LABS: BUN/Creatinine Ratio 19.6; Bilirubin, Total 0.4 mg/dL (0.2-1.0); Total Protein 6.9 g/dL (6.4-8.2)
[2020-05-19 14:59] VITALS: BP 148/65
== END 2020-05-19 17:12 | disposition home or self-care (01) ==
LOC: ER 13:06
DX: J18.9 Pneumonia, unspecified organism (principal); N20.0 Calculus of kidney; E11.22 Type 2 diabetes mellitus with diabetic chronic kidney disease; I13.0 Hypertensive heart and chronic kidney disease with heart failure and stage 1 through stage 4 chronic kidney disease, or unspecified chronic kidney disease; N18.9 Chronic kidney disease, unspecified; I50.89 Other heart failure; J44.9 Chronic obstructive pulmonary disease, unspecified; E78.5 Hyperlipidemia, unspecified; Z86.73 Personal history of transient ischemic attack (TIA), and cerebral infarction without residual deficits; Z20.828 Contact with and (suspected) exposure to other viral communicable diseases; Z90.49 Acquired absence of other specified parts of digestive tract; Z90.710 Acquired absence of both cervix and uterus; Z88.2 Allergy status to sulfonamides; Z88.6 Allergy status to analgesic agent
CPT/HCPCS: 36415; 71045; 74176; 80053; 83690; 84484; 85025; 87426; 96360; 96361; 99285; J7030

== ENCOUNTER → 2020-10-27 | Outpatient (CLI) | payer OTHER, MEDICAID ==
[~2020-10-27] MED LIST changes: +AMLO-489 PO; -AMLO5TAB15 PO; +DOCU100C10 PO; -DOCU100C8 PO; +NITR0.4D14 TD; -[UNRECOGNIZED DRUG - CODE] TD
[2020-10-27 10:13] LABS: Basophils # (auto) 0 10 ^3/uL (0-0.2); Basophils % (auto) 0.8 % (0.0-2.0); Eosinophils # (auto) 0.1 10 ^3/uL (0-0.8); Eosinophils % (auto) 2.7 % (0.0-7.0); Hemoglobin 12.4 g/dL (12.2-16.2); Lymphocytes # (auto) 0.6 10 ^3/uL (0.4-5.4); Lymphocytes % (auto) 15.2 % (10.0-50.0); Mean Corpuscular Hemoglobin 30.8 pg (28.0-32.0); Mean Corpuscular Hgb Conc. 33.5 g/dL (32.0-36.0); Mean Corpuscular Volume 91.8 fL (80.0-100.0); Monocytes # (auto) 0.3 10 ^3/uL (0-1.3); Monocytes % (auto) 7.2 % (0.0-12.0); Neutrophils # (auto) 3.1 10 ^3/uL (1.6-8.6); Neutrophils % (auto) 74.1 % (37.0-80.0); Nucleated Red Blood Cells % 0.1 %; Platelet Count (auto) 132 10^3/uL (140-450); Red Blood Cells 4.03 10^6/uL (4.0-5.20); Red Cell Distribution Width 15.8 % (11.8-14.3); White Blood Cell 4.1 10^3/uL (4.4-10.8)
[2020-10-27 10:16] LABS: Albumin 3.7 g/dL (3.4-5.0); Calcium 9.7 mg/dL (8.5-10.1); Potassium 4.3 mmol/L (3.5-5.1)
[2020-10-27 10:21] LABS: BUN/Creatinine Ratio 25.2; Bilirubin, Total 0.4 mg/dL (0.2-1.0); Total Protein 6.6 g/dL (6.4-8.2)
[2020-10-27 13:44] LABS: Free T4 (Free Thyroxine) 1.11 ng/dL (0.89-1.76)
== END | disposition home or self-care (01) ==
LOC: LAB 09:43
PROVIDERS: ATTEND Internal Medicine
DX: E11.9 Type 2 diabetes mellitus without complications (principal); I10 Essential (primary) hypertension
CPT/HCPCS: 36415; 80053; 80061; 82607; 83036; 84439; 84443; 85025; 85652

== ENCOUNTER 2020-11-03 16:44 | Emergency (ER) | payer OTHER, MEDICAID ==
[~2020-11-03] VITALS: Ht 165.1 cm; Wt 90.7 kg
[2020-11-03] MEDS ORDERED: SODIUM CHLORIDE 0.9% 500 ML IVB ONE (17:15)
[2020-11-03] MEDS ORDERED: ONDANSETRON HCL 4 MG/2 ML VIAL IV ONE (17:15)
[2020-11-03] MEDS ORDERED: MORPHINE SULFATE 4 MG/ML SYR/VIAL IV ONE (17:15)
[2020-11-03 18:17] VITALS: BP 141/54
[2020-11-03 18:40] LABS: Basophils # (auto) 0 10 ^3/uL (0-0.2); Basophils % (auto) 0.6 % (0.0-2.0); Eosinophils # (auto) 0.1 10 ^3/uL (0-0.8); Eosinophils % (auto) 2.4 % (0.0-7.0); Hematocrit 34.7 % (36.0-46.0); Hemoglobin 11.8 g/dL (12.2-16.2); Lymphocytes # (auto) 0.5 10 ^3/uL (0.4-5.4); Lymphocytes % (auto) 12.4 % (10.0-50.0); Mean Corpuscular Hemoglobin 31.2 pg (28.0-32.0); Mean Corpuscular Volume 91.9 fL (80.0-100.0); Monocytes # (auto) 0.4 10 ^3/uL (0-1.3); Monocytes % (auto) 10.5 % (0.0-12.0); Neutrophils # (auto) 2.9 10 ^3/uL (1.6-8.6); Neutrophils % (auto) 74.1 % (37.0-80.0); Nucleated Red Blood Cells % 0.3 %; Platelet Count (auto) 113 10^3/uL (140-450); Red Blood Cells 3.78 10^6/uL (4.0-5.20); Red Cell Distribution Width 15.8 % (11.8-14.3); White Blood Cell 3.9 10^3/uL (4.4-10.8)
[2020-11-03 18:40] LABS: Urine Bacteria MOD /hpf (None Seen); Urine Blood Negative /uL (Negative); Urine Mucus FEW (None Seen); Urine Specific Gravity 1.017 (1.001-1.035); Urine WBC 45 /hpf (0 - 5)
[2020-11-03 18:51] LABS: Albumin 3.5 g/dL (3.4-5.0); BUN/Creatinine Ratio 18.8; Calcium 9.5 mg/dL (8.5-10.1); Potassium 4.3 mmol/L (3.5-5.1)
[2020-11-03 18:53] LABS: Bilirubin, Total 0.4 mg/dL (0.2-1.0); Total Protein 6.5 g/dL (6.4-8.2)
== END 2020-11-03 19:49 | disposition home or self-care (01) ==
LOC: ER 16:44
DX: N39.0 Urinary tract infection, site not specified (principal); R10.31 Right lower quadrant pain; F41.9 Anxiety disorder, unspecified; J44.9 Chronic obstructive pulmonary disease, unspecified; E78.5 Hyperlipidemia, unspecified; I11.0 Hypertensive heart disease with heart failure; I50.9 Heart failure, unspecified; E11.9 Type 2 diabetes mellitus without complications; Z88.5 Allergy status to narcotic agent; Z88.6 Allergy status to analgesic agent; Z88.2 Allergy status to sulfonamides; Z79.82 Long term (current) use of aspirin; Z79.84 Long term (current) use of oral hypoglycemic drugs; Z79.899 Other long term (current) drug therapy; Z86.73 Personal history of transient ischemic attack (TIA), and cerebral infarction without residual deficits; Z90.49 Acquired absence of other specified parts of digestive tract; Z90.710 Acquired absence of both cervix and uterus
CPT/HCPCS: 36415; 74176; 80053; 81001; 82150; 83690; 85025; 93005; 96361; 96374; 96375; 99285; J2270; J2405; J7040

== ENCOUNTER → 2020-12-26 | Outpatient (CLI) | payer OTHER, MEDICAID | END | disposition home or self-care (01) | LOC: XYW 15:55 | PROVIDERS: ATTEND Internal Medicine | DX: I07.1 Rheumatic tricuspid insufficiency (principal); R00.1 Bradycardia, unspecified; I11.9 Hypertensive heart disease without heart failure | CPT/HCPCS: 93306 ==

== ENCOUNTER → 2020-12-27 | Outpatient (CLI) | payer OTHER, MEDICAID | END | disposition home or self-care (01) | LOC: LAB 08:53 | PROVIDERS: ATTEND Internal Medicine | DX: Z01.812 Encounter for preprocedural laboratory examination (principal) | CPT/HCPCS: 36415; 82565; 84520 ==

== ENCOUNTER → 2021-01-16 | Outpatient (CLI) | payer OTHER, MEDICAID | END | disposition home or self-care (01) | LOC: LAB 15:38 | PROVIDERS: ATTEND Internal Medicine | DX: E11.9 Type 2 diabetes mellitus without complications (principal); I10 Essential (primary) hypertension | CPT/HCPCS: 36415; 82088; 82384; 83036 ==

== ENCOUNTER → 2021-03-26 | Outpatient (CLI) | payer OTHER, MEDICAID ==
[2021-03-26 10:04] LABS: Basophils # (auto) 0 10 ^3/uL (0-0.2); Basophils % (auto) 0.6 % (0.0-2.0); Eosinophils # (auto) 0.1 10 ^3/uL (0-0.8); Eosinophils % (auto) 1.7 % (0.0-7.0); Hematocrit 39.3 % (36.0-46.0); Hemoglobin 12.7 g/dL (12.2-16.2); Lymphocytes # (auto) 0.4 10 ^3/uL (0.4-5.4); Lymphocytes % (auto) 7.8 % (10.0-50.0); Mean Corpuscular Hemoglobin 29.9 pg (28.0-32.0); Mean Corpuscular Hgb Conc. 32.4 g/dL (32.0-36.0); Mean Corpuscular Volume 92.6 fL (80.0-100.0); Monocytes # (auto) 0.5 10 ^3/uL (0-1.3); Monocytes % (auto) 9.2 % (0.0-12.0); Neutrophils # (auto) 4.2 10 ^3/uL (1.6-8.6); Neutrophils % (auto) 80.7 % (37.0-80.0); Red Blood Cells 4.24 10^6/uL (4.0-5.20); Red Cell Distribution Width 15.1 % (11.8-14.3); White Blood Cell 5.2 10^3/uL (4.4-10.8)
[2021-03-26 10:34] LABS: Potassium 4.4 mmol/L (3.5-5.1)
[2021-03-26 10:46] LABS: Albumin 3.8 g/dL (3.4-5.0); Bilirubin, Total 0.5 mg/dL (0.2-1.0); Total Protein 6.8 g/dL (6.4-8.2); Uric Acid 5.2 mg/dL (2.6-6.0)
== END | disposition home or self-care (01) ==
LOC: LAB 09:38
PROVIDERS: ATTEND Internal Medicine
DX: I12.9 Hypertensive chronic kidney disease with stage 1 through stage 4 chronic kidney disease, or unspecified chronic kidney disease (principal); E11.22 Type 2 diabetes mellitus with diabetic chronic kidney disease; N18.30 Chronic kidney disease, stage 3 unspecified; R91.1 Solitary pulmonary nodule; D69.6 Thrombocytopenia, unspecified
CPT/HCPCS: 36415; 80053; 82607; 83036; 83615; 83970; 84550; 85025

== ENCOUNTER → 2021-07-02 | Outpatient (CLI) | payer OTHER ==
[2021-07-02 13:08] LABS: Basophils # (auto) 0 10 ^3/uL (0-0.2); Basophils % (auto) 0.9 % (0.0-2.0); Eosinophils # (auto) 0.1 10 ^3/uL (0-0.8); Eosinophils % (auto) 2.1 % (0.0-7.0); Hematocrit 36.4 % (36.0-46.0); Hemoglobin 11.9 g/dL (12.2-16.2); Lymphocytes # (auto) 0.6 10 ^3/uL (0.4-5.4); Lymphocytes % (auto) 11.8 % (10.0-50.0); Mean Corpuscular Hemoglobin 29.3 pg (28.0-32.0); Mean Corpuscular Hgb Conc. 32.7 g/dL (32.0-36.0); Mean Corpuscular Volume 89.7 fL (80.0-100.0); Monocytes # (auto) 0.4 10 ^3/uL (0-1.3); Monocytes % (auto) 8.1 % (0.0-12.0); Neutrophils # (auto) 3.8 10 ^3/uL (1.6-8.6); Neutrophils % (auto) 77.1 % (37.0-80.0); Nucleated Red Blood Cells % 0.1 %; Red Blood Cells 4.05 10^6/uL (4.0-5.20); Red Cell Distribution Width 14.9 % (11.8-14.3); White Blood Cell 4.9 10^3/uL (4.4-10.8)
[2021-07-02 14:02] LABS: Urine Bacteria MANY /hpf (None Seen); Urine Blood Negative /uL (Negative); Urine Hyaline Cast MOD /lpf (0 - 2); Urine Mucus FEW (None Seen); Urine Specific Gravity 1.021 (1.001-1.035); Urine WBC 84 /hpf (0 - 5)
[2021-07-02 14:03] LABS: Calcium 9.9 mg/dL (8.5-10.1); Potassium 4.7 mmol/L (3.5-5.1)
[2021-07-02 14:09] LABS: Albumin 3.9 g/dL (3.4-5.0); BUN/Creatinine Ratio 22.3; Bilirubin, Total 0.4 mg/dL (0.2-1.0)
== END | disposition home or self-care (01) ==
LOC: LAB 12:21
PROVIDERS: ATTEND Internal Medicine
DX: E11.9 Type 2 diabetes mellitus without complications (principal); M25.50 Pain in unspecified joint
CPT/HCPCS: 36415; 80053; 81001; 83036; 84439; 84443; 85025; 85652

== ENCOUNTER → 2021-09-19 | Outpatient (CLI) | payer OTHER, MEDICAID ==
[2021-09-19 11:36] LABS: Basophils # (auto) 0.1 10 ^3/uL (0-0.2); Basophils % (auto) 1.4 % (0.0-2.0); Eosinophils # (auto) 0.1 10 ^3/uL (0-0.8); Eosinophils % (auto) 3.7 % (0.0-7.0); Hematocrit 33.3 % (36.0-46.0); Lymphocytes # (auto) 0.6 10 ^3/uL (0.4-5.4); Lymphocytes % (auto) 15.7 % (10.0-50.0); Mean Corpuscular Hemoglobin 28.6 pg (28.0-32.0); Mean Corpuscular Volume 86.6 fL (80.0-100.0); Monocytes # (auto) 0.3 10 ^3/uL (0-1.3); Monocytes % (auto) 8.6 % (0.0-12.0); Neutrophils # (auto) 2.6 10 ^3/uL (1.6-8.6); Neutrophils % (auto) 70.6 % (37.0-80.0); Nucleated Red Blood Cells % 0.1 %; Red Blood Cells 3.85 10^6/uL (4.0-5.20); Red Cell Distribution Width 15.5 % (11.8-14.3); White Blood Cell 3.7 10^3/uL (4.4-10.8)
[2021-09-19 12:08] LABS: Potassium 4.6 mmol/L (3.5-5.1)
[2021-09-19 12:13] LABS: Albumin 3.5 g/dL (3.4-5.0); BUN/Creatinine Ratio 22.5; Bilirubin, Total 0.4 mg/dL (0.2-1.0); Calcium 9.8 mg/dL (8.5-10.1); Uric Acid 5.8 mg/dL (2.6-6.0)
== END | disposition home or self-care (01) ==
LOC: LAB 10:57
PROVIDERS: ATTEND Internal Medicine
DX: E11.22 Type 2 diabetes mellitus with diabetic chronic kidney disease (principal); N18.30 Chronic kidney disease, stage 3 unspecified; D64.9 Anemia, unspecified
CPT/HCPCS: 36415; 80053; 82607; 83036; 83540; 83615; 84550; 85025

== ENCOUNTER → 2021-10-04 | Outpatient (CLI) | payer OTHER, MEDICAID ==
[~2021-10-04] MED LIST changes: +BUPIVACAINE HCL 0.25% P/F 10 ML VIAL ONE; +GADOTERATE MEG 10 MMOL/20ml INJ (0.5MMOL/ml) IV ONE; +LIDOCAINE 2%HCL (LOCAL ANESTH.) INJ 10ml MDV ONE; +methylPREDNISolone ACETATE 80 MG/ML VL ONE
== END | disposition home or self-care (01) ==
LOC: XYW 14:05
PROVIDERS: ATTEND Orthopaedic Surgery Sports Medicine
DX: M19.031 Primary osteoarthritis, right wrist (principal)
CPT/HCPCS: 73100; 76000; A9575; J1040; J2001; J3490

== ENCOUNTER → 2021-11-07 | Outpatient (CLI) | payer OTHER ==
[~2021-11-07] MED LIST changes: -BUPIVACAINE HCL 0.25% P/F 10 ML VIAL ONE; -GADOTERATE MEG 10 MMOL/20ml INJ (0.5MMOL/ml) IV ONE; -LIDOCAINE 2%HCL (LOCAL ANESTH.) INJ 10ml MDV ONE; -methylPREDNISolone ACETATE 80 MG/ML VL ONE
[2021-11-07 11:33] LABS: Basophils # (auto) 0 10 ^3/uL (0-0.2); Basophils % (auto) 0.7 % (0.0-2.0); Eosinophils # (auto) 0.1 10 ^3/uL (0-0.8); Eosinophils % (auto) 1.8 % (0.0-7.0); Hematocrit 36.2 % (36.0-46.0); Hemoglobin 11.8 g/dL (12.2-16.2); Lymphocytes # (auto) 0.7 10 ^3/uL (0.4-5.4); Lymphocytes % (auto) 13.2 % (10.0-50.0); Mean Corpuscular Hemoglobin 28.8 pg (28.0-32.0); Mean Corpuscular Hgb Conc. 32.6 g/dL (32.0-36.0); Mean Corpuscular Volume 88.2 fL (80.0-100.0); Monocytes # (auto) 0.3 10 ^3/uL (0-1.3); Neutrophils # (auto) 3.8 10 ^3/uL (1.6-8.6); Neutrophils % (auto) 77.3 % (37.0-80.0); Red Cell Distribution Width 16.6 % (11.8-14.3)
[2021-11-07 12:09] LABS: Albumin 3.8 g/dL (3.4-5.0); Anion Gap 6 (5-15); Blood Urea Nitrogen 27 mg/dL (7-18); Carbon Dioxide 23 mmol/L (21-32); Chloride 112 mmol/L (98-107); Glucose 131 mg/dL (74-106); Potassium 4.8 mmol/L (3.5-5.1); Sodium 141 mmol/L (136-145)
[2021-11-07 12:12] LABS: Alanine Aminotransferase 20 U/L (13-56); Alkaline Phosphatase 48 U/L (45-117); Aspartate Aminotransferase 15 U/L (15-37); Bilirubin, Total 0.4 mg/dL (0.2-1.0); CRP High Sensitivity < 0.02 mg/dL (< 0.3); GFR African American 53 mL/min; GFR Non-African American 44 mL/min
== END | disposition home or self-care (01) ==
LOC: LAB 11:10
PROVIDERS: ATTEND Internal Medicine Rheumatology
DX: M32.10 Systemic lupus erythematosus, organ or system involvement unspecified (principal)
CPT/HCPCS: 36415; 80053; 82232; 85025; 85652; 86141; 86160

== ENCOUNTER → 2022-01-18 | Outpatient (CLI) | payer OTHER, MEDICAID ==
[~2022-01-18] MED LIST changes: +HYDR-4902 PO
[2022-01-18 10:21] LABS: Basophils # (auto) 0 10 ^3/uL (0-0.2); Basophils % (auto) 0.7 % (0.0-2.0); Eosinophils # (auto) 0.1 10 ^3/uL (0-0.8); Eosinophils % (auto) 1.5 % (0.0-7.0); Hemoglobin 12.1 g/dL (12.2-16.2); Lymphocytes # (auto) 0.7 10 ^3/uL (0.4-5.4); Lymphocytes % (auto) 15.4 % (10.0-50.0); Mean Corpuscular Hemoglobin 28.5 pg (28.0-32.0); Mean Corpuscular Hgb Conc. 31.8 g/dL (32.0-36.0); Mean Corpuscular Volume 89.6 fL (80.0-100.0); Monocytes # (auto) 0.3 10 ^3/uL (0-1.3); Monocytes % (auto) 6.7 % (0.0-12.0); Neutrophils # (auto) 3.5 10 ^3/uL (1.6-8.6); Neutrophils % (auto) 75.7 % (37.0-80.0); Red Blood Cells 4.25 10^6/uL (4.0-5.20); Red Cell Distribution Width 16.1 % (11.8-14.3); White Blood Cell 4.7 10^3/uL (4.4-10.8)
[2022-01-18 10:25] LABS: Urine Bacteria NONE SEEN /hpf (None Seen); Urine Blood Negative /uL (Negative); Urine Specific Gravity 1.021 (1.001-1.035); Urine WBC 3 /hpf (0 - 5)
[2022-01-18 10:50] LABS: Albumin 3.9 g/dL (3.4-5.0); Calcium 10.1 mg/dL (8.5-10.1); Potassium 4.2 mmol/L (3.5-5.1)
[2022-01-18 10:55] LABS: Bilirubin, Total 0.7 mg/dL (0.2-1.0); Total Protein 6.9 g/dL (6.4-8.2); Uric Acid 5.2 mg/dL (2.6-6.0)
== END | disposition home or self-care (01) ==
LOC: LAB 09:49
PROVIDERS: ATTEND Internal Medicine
DX: I12.9 Hypertensive chronic kidney disease with stage 1 through stage 4 chronic kidney disease, or unspecified chronic kidney disease (principal); E11.22 Type 2 diabetes mellitus with diabetic chronic kidney disease; N18.30 Chronic kidney disease, stage 3 unspecified
CPT/HCPCS: 36415; 80053; 80061; 81001; 82043; 83036; 83970; 84439; 84443; 84550; 85025; 85652

== ENCOUNTER 2022-01-22 08:42 | Inpatient (IN) | payer OTHER, MEDICAID ==
[~2022-01-22] VITALS: Ht 165.1 cm; Wt 80.5 kg
[~2022-01-22 08:42] MED LIST changes: -HYDR-4902 PO
[2022-01-22 10:00] LABS: INR 0.99 (0.9-1.15)
[2022-01-22 10:11] LABS: Albumin 3.9 g/dL (3.4-5.0); Calcium 10.3 mg/dL (8.5-10.1); Potassium 4.9 mmol/L (3.5-5.1)
[2022-01-22 10:16] LABS: BUN/Creatinine Ratio 23.4; Bilirubin, Total 0.4 mg/dL (0.2-1.0); Total Protein 6.9 g/dL (6.4-8.2)
[2022-01-22 10:25] LABS: Basophils # (auto) 0 10 ^3/uL (0-0.2); Basophils % (auto) 0.4 % (0.0-2.0); Eosinophils # (auto) 0.1 10 ^3/uL (0-0.8); Eosinophils % (auto) 1.3 % (0.0-7.0); Hematocrit 37.6 % (36.0-46.0); Lymphocytes # (auto) 0.7 10 ^3/uL (0.4-5.4); Mean Corpuscular Hemoglobin 28.9 pg (28.0-32.0); Mean Corpuscular Volume 90.2 fL (80.0-100.0); Monocytes # (auto) 0.4 10 ^3/uL (0-1.3); Neutrophils # (auto) 5.6 10 ^3/uL (1.6-8.6); Neutrophils % (auto) 82.3 % (37.0-80.0); Red Blood Cells 4.17 10^6/uL (4.0-5.20); Red Cell Distribution Width 15.5 % (11.8-14.3); White Blood Cell 6.8 10^3/uL (4.4-10.8)
[2022-01-22] MEDS: GABAPENTIN 100 MG CAP PO SCH (22:47)
[2022-01-22] MEDS: ATORVASTATIN 20 MG TAB PO SCH (22:47)
[2022-01-22 23:45] VITALS: BP 154/50
[2022-01-22] MEDS ORDERED: HYDR-4902 PO (23:59)
[2022-01-23 05:28] VITALS: BP 144/62
[2022-01-23] MEDS: GABAPENTIN 100 MG CAP PO SCH ×3 (06:17→22:32)
[2022-01-23 06:58] LABS: Basophils # (auto) 0 10 ^3/uL (0-0.2); Basophils % (auto) 0.8 % (0.0-2.0); Eosinophils # (auto) 0.1 10 ^3/uL (0-0.8); Eosinophils % (auto) 2.4 % (0.0-7.0); Hematocrit 32.2 % (36.0-46.0); Hemoglobin 10.2 g/dL (12.2-16.2); Lymphocytes # (auto) 0.6 10 ^3/uL (0.4-5.4); Lymphocytes % (auto) 17.1 % (10.0-50.0); Mean Corpuscular Hemoglobin 28.7 pg (28.0-32.0); Mean Corpuscular Hgb Conc. 31.8 g/dL (32.0-36.0); Mean Corpuscular Volume 90.3 fL (80.0-100.0); Monocytes # (auto) 0.4 10 ^3/uL (0-1.3); Monocytes % (auto) 10.7 % (0.0-12.0); Neutrophils # (auto) 2.6 10 ^3/uL (1.6-8.6); Red Blood Cells 3.56 10^6/uL (4.0-5.20); Red Cell Distribution Width 15.6 % (11.8-14.3); White Blood Cell 3.7 10^3/uL (4.4-10.8)
[2022-01-23 07:12] LABS: BUN/Creatinine Ratio 29.1; Calcium 9.3 mg/dL (8.5-10.1); Potassium 4.1 mmol/L (3.5-5.1)
[2022-01-23 09:00] VITALS: BP 149/56
[2022-01-23] MEDS ORDERED: ACETAMINOPHEN 325 MG TAB PO PRN (12:45)
[2022-01-23 13:00] VITALS: BP 137/40
[2022-01-23 16:39] VITALS: BP 110/39
[2022-01-23 22:00] VITALS: BP 138/52
[2022-01-23] MEDS: ATORVASTATIN 20 MG TAB PO SCH (22:31)
[2022-01-24 05:00] VITALS: BP 144/58
[2022-01-24] MEDS: GABAPENTIN 100 MG CAP PO SCH ×2 (06:32→14:17)
[2022-01-24 09:00] VITALS: BP 143/69
[2022-01-24] MEDS ORDERED: LIDOCAINE 2%HCL (LOCAL ANESTH.) INJ 10ml MDV ONE (09:34)
[2022-01-24 12:34] LABS: CSF White Blood Cells 0 CUMM (0-5)
[2022-01-24 12:49] LABS: Protein, CSF 35.8 mg/dL (15-45)
[2022-01-24 13:00] VITALS: BP 160/54
[2022-01-24] MEDS ORDERED: ACET325T10 PO (13:13)
[2022-01-24 15:42] VITALS: BP 160/54
[2022-01-24 17:00] VITALS: BP 115/58
== END 2022-01-24 18:15 | disposition home or self-care (01) | DRG 57 ==
LOC: ER 08:42 → OVERFLOW 15:57 → CENTRAL 23:23
PROVIDERS: ADMIT Nurse Practitioner Family; ATTEND Internal Medicine Nephrology
PROC: 009U3ZX Drainage of Spinal Canal, Percutaneous Approach, Diagnostic (ICD-10-PCS; principal; 2022-01-24)
PROC: B01B1ZZ Fluoroscopy of Spinal Cord using Low Osmolar Contrast (ICD-10-PCS; 2022-01-24)
DX: G91.2 (Idiopathic) normal pressure hydrocephalus (principal); G31.84 Mild cognitive impairment of uncertain or unknown etiology; F17.200 Nicotine dependence, unspecified, uncomplicated; J44.9 Chronic obstructive pulmonary disease, unspecified; E11.9 Type 2 diabetes mellitus without complications; E78.00 Pure hypercholesterolemia, unspecified; Z20.822 Contact with and (suspected) exposure to COVID-19; G43.909 Migraine, unspecified, not intractable, without status migrainosus; I11.0 Hypertensive heart disease with heart failure; I50.9 Heart failure, unspecified; Z79.82 Long term (current) use of aspirin; Z79.899 Other long term (current) drug therapy; Z79.51 Long term (current) use of inhaled steroids; Z86.73 Personal history of transient ischemic attack (TIA), and cerebral infarction without residual deficits; Z88.8 Allergy status to other drugs, medicaments and biological substances; Z88.5 Allergy status to narcotic agent; Z82.49 Family history of ischemic heart disease and other diseases of the circulatory system; Z83.3 Family history of diabetes mellitus; Z90.710 Acquired absence of both cervix and uterus; Z92.3 Personal history of irradiation; Z95.1 Presence of aortocoronary bypass graft; Z68.29 Body mass index [BMI] 29.0-29.9, adult
CPT/HCPCS: 36415; 62272; 70450; 80048; 80053; 82945; 84157; 85025; 85610; 85730; 89051; 97116; 97163; 97530; G0378; J2001

== ENCOUNTER → 2022-04-29 | Outpatient (CLI) | payer OTHER, MEDICAID ==
[~2022-04-29] MED LIST changes: +ACET325T10 PO; +HYDR-4902 PO; -NITR0.4D14 TD; -TRAM-300 PO
[2022-04-29 12:59] LABS: Basophils # (auto) 0 10 ^3/uL (0-0.2); Basophils % (auto) 0.8 % (0.0-2.0); Eosinophils # (auto) 0.1 10 ^3/uL (0-0.8); Eosinophils % (auto) 1.8 % (0.0-7.0); Hematocrit 35.5 % (36.0-46.0); Hemoglobin 11.2 g/dL (12.2-16.2); Lymphocytes # (auto) 0.6 10 ^3/uL (0.4-5.4); Lymphocytes % (auto) 12.3 % (10.0-50.0); Mean Corpuscular Hemoglobin 28.4 pg (28.0-32.0); Mean Corpuscular Hgb Conc. 31.5 g/dL (32.0-36.0); Mean Corpuscular Volume 90.3 fL (80.0-100.0); Monocytes # (auto) 0.4 10 ^3/uL (0-1.3); Neutrophils % (auto) 77.1 % (37.0-80.0); Red Blood Cells 3.94 10^6/uL (4.0-5.20); Red Cell Distribution Width 15.7 % (11.8-14.3); White Blood Cell 5.2 10^3/uL (4.4-10.8)
[2022-04-29 13:56] LABS: Albumin 3.7 g/dL (3.4-5.0); BUN/Creatinine Ratio 24.5; Bilirubin, Total 0.4 mg/dL (0.2-1.0); CRP High Sensitivity 0.02 mg/dL (< 0.3); Potassium 4.2 mmol/L (3.5-5.1); Total Protein 6.9 g/dL (6.4-8.2)
== END | disposition home or self-care (01) ==
LOC: LAB 12:39
PROVIDERS: ATTEND Internal Medicine
DX: D64.9 Anemia, unspecified (principal)
CPT/HCPCS: 36415; 80053; 83036; 85025; 85652; 86141; 86160

== ENCOUNTER → 2022-04-30 | Day surgery (SDC) | payer OTHER, MEDICAID ==
[2022-04-29 13:04] LABS: Basophils # (auto) 0 10 ^3/uL (0-0.2); Basophils % (auto) 0.9 % (0.0-2.0); Eosinophils # (auto) 0.1 10 ^3/uL (0-0.8); Hematocrit 34.9 % (36.0-46.0); Hemoglobin 11.4 g/dL (12.2-16.2); Lymphocytes # (auto) 0.6 10 ^3/uL (0.4-5.4); Lymphocytes % (auto) 12.3 % (10.0-50.0); Mean Corpuscular Hemoglobin 29.2 pg (28.0-32.0); Mean Corpuscular Hgb Conc. 32.5 g/dL (32.0-36.0); Mean Corpuscular Volume 89.6 fL (80.0-100.0); Monocytes # (auto) 0.4 10 ^3/uL (0-1.3); Monocytes % (auto) 8.3 % (0.0-12.0); Neutrophils % (auto) 76.5 % (37.0-80.0); Nucleated Red Blood Cells % 0.1 %; Red Cell Distribution Width 16.2 % (11.8-14.3); White Blood Cell 5.2 10^3/uL (4.4-10.8)
[2022-04-29 13:18] LABS: INR 1.03 (0.9-1.15)
[2022-04-29 13:59] LABS: Albumin 3.8 g/dL (3.4-5.0); BUN/Creatinine Ratio 24.1; Calcium 10.5 mg/dL (8.5-10.1); Potassium 4.2 mmol/L (3.5-5.1)
[2022-04-29 14:02] LABS: Bilirubin, Total 0.4 mg/dL (0.2-1.0); Total Protein 6.9 g/dL (6.4-8.2)
[~2022-04-30] VITALS: Ht 160 cm; Wt 75.3 kg
[~2022-04-30] MED LIST changes: -DOCU100C10 PO; -HYDR200T36 PO; +LIDOCAINE VISCOUS 2% 15ML UD ONE
[2022-04-30] MEDS: fentaNYL CITRATE 100 MCG/2 ML VL ONE ×3 (11:15→11:27)
[2022-04-30] MEDS: diphenhdrAMINE HCL 50 MG/1 ML VL ONE ×2 (11:15→11:18)
[2022-04-30] MEDS: MIDAZOLAM HCL 5 MG/ML-1ML VIAL ONE ×2 (11:15→11:18)
[2022-04-30 12:05] VITALS: BP 156/60
== END | disposition home or self-care (01) ==
LOC: GI 09:14
PROVIDERS: ATTEND Internal Medicine Gastroenterology
DX: K21.9 Gastro-esophageal reflux disease without esophagitis (principal); D50.9 Iron deficiency anemia, unspecified; K44.9 Diaphragmatic hernia without obstruction or gangrene; K22.70 Barrett's esophagus without dysplasia; K31.7 Polyp of stomach and duodenum; K29.50 Unspecified chronic gastritis without bleeding; E11.22 Type 2 diabetes mellitus with diabetic chronic kidney disease; I12.9 Hypertensive chronic kidney disease with stage 1 through stage 4 chronic kidney disease, or unspecified chronic kidney disease; N18.9 Chronic kidney disease, unspecified; J45.909 Unspecified asthma, uncomplicated; Z98.41 Cataract extraction status, right eye; Z98.42 Cataract extraction status, left eye; Z95.1 Presence of aortocoronary bypass graft; Z98.890 Other specified postprocedural states; Z79.899 Other long term (current) drug therapy; Z79.84 Long term (current) use of oral hypoglycemic drugs; Z20.822 Contact with and (suspected) exposure to COVID-19
CPT/HCPCS: 36415; 43239; 80053; 82962; 85025; 85610; 85730; J1200; J2250; J3010; J7030; U0003; 99152

== ENCOUNTER 2022-09-03 09:25 | Day surgery (SDC) | payer OTHER ==
[2022-09-02 11:03] LABS: Basophils # (auto) 0 10 ^3/uL (0-0.2); Basophils % (auto) 0.5 % (0.0-2.0); Eosinophils # (auto) 0.2 10 ^3/uL (0-0.8); Eosinophils % (auto) 2.8 % (0.0-7.0); Hematocrit 34.2 % (36.0-46.0); Hemoglobin 11.1 g/dL (12.2-16.2); Lymphocytes # (auto) 0.8 10 ^3/uL (0.4-5.4); Lymphocytes % (auto) 14.7 % (10.0-50.0); Mean Corpuscular Hemoglobin 29.3 pg (28.0-32.0); Mean Corpuscular Hgb Conc. 32.6 g/dL (32.0-36.0); Monocytes # (auto) 0.4 10 ^3/uL (0-1.3); Monocytes % (auto) 6.8 % (0.0-12.0); Neutrophils % (auto) 75.2 % (37.0-80.0); Nucleated Red Blood Cells % 0.1 %; Red Cell Distribution Width 16.1 % (11.8-14.3); White Blood Cell 5.3 10^3/uL (4.4-10.8)
[2022-09-02 11:37] LABS: INR 1.03 (0.9-1.15); Partial Thromboplastin Time 27.3 sec (24.6-33.4)
[2022-09-02 11:46] LABS: Albumin 3.8 g/dL (3.4-5.0); Calcium 10.2 mg/dL (8.5-10.1); Potassium 4.3 mmol/L (3.5-5.1)
[2022-09-02 11:50] LABS: BUN/Creatinine Ratio 24.1 (10.0-20.0); Bilirubin, Total 0.5 mg/dL (0.2-1.0); Total Protein 6.8 g/dL (6.4-8.2)
[~2022-09-03] VITALS: Ht 160 cm; Wt 73.0 kg
[~2022-09-03 09:25] MED LIST changes: +HYDR-4296 PO; -LIDOCAINE VISCOUS 2% 15ML UD ONE
[2022-09-03] MEDS ORDERED: NALOXONE HCL 0.4 MG/ML VIAL ONE (10:15)
[2022-09-03] MEDS ORDERED: FLUMAZENIL 0.1 MG/ML INJ 10ML MDV IV ONE (10:15)
[2022-09-03] MEDS: fentaNYL CITRATE 100 MCG/2 ML VL ONE ×4 (10:57→11:18)
[2022-09-03] MEDS: diphenhdrAMINE HCL 50 MG/1 ML VL ONE ×2 (10:57→10:59)
[2022-09-03] MEDS: MIDAZOLAM HCL 2MG/2ML 2ml VIAL (1mg/ml) ONE ×3 (10:57→11:07)
[2022-09-03 12:28] VITALS: BP 161/70
== END 2022-09-03 12:41 | disposition home or self-care (01) ==
LOC: GI 09:25
PROVIDERS: ATTEND Internal Medicine Gastroenterology
DX: D50.9 Iron deficiency anemia, unspecified (principal); K63.5 Polyp of colon; K63.89 Other specified diseases of intestine; K64.8 Other hemorrhoids; R19.4 Change in bowel habit; J44.9 Chronic obstructive pulmonary disease, unspecified; J18.9 Pneumonia, unspecified organism; E11.9 Type 2 diabetes mellitus without complications; I20.9 Angina pectoris, unspecified; F41.8 Other specified anxiety disorders; I10 Essential (primary) hypertension; E78.5 Hyperlipidemia, unspecified; Z79.899 Other long term (current) drug therapy; Z95.5 Presence of coronary angioplasty implant and graft; Z90.710 Acquired absence of both cervix and uterus; Z83.3 Family history of diabetes mellitus; Z82.49 Family history of ischemic heart disease and other diseases of the circulatory system; Z80.1 Family history of malignant neoplasm of trachea, bronchus and lung; Z88.6 Allergy status to analgesic agent; Z91.041 Radiographic dye allergy status; Z88.2 Allergy status to sulfonamides; Z91.09 Other allergy status, other than to drugs and biological substances; Z98.890 Other specified postprocedural states; Z20.822 Contact with and (suspected) exposure to COVID-19
CPT/HCPCS: 36415; 45385; 80053; 82962; 85025; 85610; 85730; J1200; J2250; J3010; J7030; U0003

== ENCOUNTER → 2022-11-12 | Outpatient (CLI) | payer OTHER ==
[~2022-11-12] MED LIST changes: +ACET-1882 PO; -ACET325T10 PO; -AMLO-489 PO; +AMLO1TAB22 PO; +GABA-1308 PO; -GABA100C9 PO; +LORA-1121 PO; -LORA0.5T20 PO; -LOSA-39 PO; +LOSA100T58 PO
== END | disposition home or self-care (01) ==
LOC: LAB 06:18
PROVIDERS: ATTEND Licensed Practical Nurse
DX: N39.0 Urinary tract infection, site not specified (principal)
CPT/HCPCS: 87086; 87088; 87186

== ENCOUNTER → 2022-11-19 | Outpatient (CLI) | payer OTHER | END | disposition home or self-care (01) | LOC: LAB 16:18 | PROVIDERS: ATTEND Internal Medicine | DX: E11.9 Type 2 diabetes mellitus without complications (principal); N39.0 Urinary tract infection, site not specified | CPT/HCPCS: 87086; 87088; 87186 ==

== ENCOUNTER → 2023-03-07 | Outpatient (CLI) | payer OTHER | END | disposition home or self-care (01) | LOC: LAB 13:30 | PROVIDERS: ATTEND Family Medicine | DX: C44.311 Basal cell carcinoma of skin of nose (principal) | CPT/HCPCS: 88302 ==

== ENCOUNTER 2023-03-27 11:01 | Inpatient (IN) | payer OTHER, MEDICAID ==
[~2023-03-27] VITALS: Ht 167.6 cm; Wt 73.9 kg
[2023-03-27 12:11] LABS: Basophils # (auto) 0 10 ^3/uL (0-0.2); Basophils % (auto) 0.4 % (0.0-2.0); Eosinophils # (auto) 0.2 10 ^3/uL (0-0.8); Eosinophils % (auto) 2.3 % (0.0-7.0); Hematocrit 39.8 % (36.0-46.0); Hemoglobin 13.3 g/dL (12.2-16.2); Lymphocytes # (auto) 0.5 10 ^3/uL (0.4-5.4); Lymphocytes % (auto) 7.5 % (10.0-50.0); Mean Corpuscular Hemoglobin 30.7 pg (28.0-32.0); Mean Corpuscular Hgb Conc. 33.5 g/dL (32.0-36.0); Mean Corpuscular Volume 91.8 fL (80.0-100.0); Monocytes # (auto) 0.5 10 ^3/uL (0-1.3); Monocytes % (auto) 7.4 % (0.0-12.0); Neutrophils # (auto) 5.8 10 ^3/uL (1.6-8.6); Neutrophils % (auto) 82.4 % (37.0-80.0); Nucleated Red Blood Cells % 0.1 %; Red Blood Cells 4.34 10^6/uL (4.0-5.20); Red Cell Distribution Width 15.5 % (11.8-14.3)
[2023-03-27 12:22] LABS: INR 1.04 (0.9-1.15); Partial Thromboplastin Time 27.7 SEC (24.5-34.5); Prothrombin Time 10.9 sec (9.3-11.8)
[2023-03-27 12:40] LABS: Alanine Aminotransferase 19 U/L (7-40); Albumin 4.4 g/dL (3.2-4.8); Alkaline Phosphatase 73 U/L (46-116); Anion Gap 8 (5-15); Aspartate Aminotransferase 19 U/L (13-40); BUN/Creatinine Ratio 16.3 (10.0-20.0); Blood Urea Nitrogen 23 mg/dL (9-23); Calcium 10.3 mg/dL (8.5-10.1); Carbon Dioxide 21 mmol/L (20-30); Chloride 110 mmol/L (98-107); Glucose 169 mg/dL (74-106); Potassium 3.9 mmol/L (3.5-5.1); Sodium 139 mmol/L (136-145)
[2023-03-27 12:41] LABS: Total Protein 7.1 g/dL (5.7-8.2)
[2023-03-27 13:16] LABS: Urine Bacteria NONE SEEN /hpf (None Seen); Urine Blood Negative /uL (Negative); Urine Clarity Clear (Clear); Urine Color Yellow (Yellow); Urine Protein, UAD 1+ (Negative); Urine Specific Gravity 1.013 (1.001-1.035); Urine Urobilinogen Normal (Negative); Urine WBC 6 /hpf (0 - 5); Urine pH 5.5 (5.0-8.0)
[2023-03-27] MEDS ORDERED: SODIUM CHLORIDE 0.9% 500 ML IV ONE (13:30)
[2023-03-27] MEDS ORDERED: ASPirin 325 MG TAB PO ONE (13:30)
[2023-03-27] MEDS ORDERED: ACETAMINOPHEN 325 MG TAB PO PRN (14:30)
[2023-03-27] MEDS ORDERED: cefTRIAXone 1GM/50ML D5W 50 ML IV ONE (14:30)
[2023-03-27] MEDS ORDERED: MORPHINE SULFATE INJ 2 MG/ml SYRG IV PRN (14:30)
[2023-03-27] MEDS ORDERED: ONDANSETRON HCL 4 MG/2 ML VIAL IV PRN (14:30)
[2023-03-27] MEDS ORDERED: NITROGLYCERIN 0.4 MG SL TAB SL PRN (14:30)
[2023-03-27] MEDS: HYDROcodone-ACET 7.5/325MG TAB PO PRN (14:47)
[2023-03-27] MEDS ORDERED: GLIP5TAB12 PO (15:10)
[2023-03-27] MEDS ORDERED: AMLO1TAB23 PO (15:10)
[2023-03-27] MEDS ORDERED: GABA-1250 PO (15:10)
[2023-03-27] MEDS ORDERED: HYDR25TA87 PO (15:10)
[2023-03-27] MEDS ORDERED: FLUO40CA PO (15:10)
[2023-03-27] MEDS ORDERED: ARIP5TAB36 PO (15:10)
[2023-03-27] MEDS ORDERED: DEXTROSE (50%) 50ML SYRG IV PRN (15:15)
[2023-03-27] MEDS: InsuLIN REG 1unit/0.01ml Soln (100units/ml) SC SCH (17:00)
[2023-03-27] MEDS ORDERED: MAGNESIUM SULFATE 1GM/100ML 100 ML IV ONE (21:45)
[2023-03-27] MEDS: SODIUM CHLORIDE 0.9% 1,000 ML IV SCH (22:07)
[2023-03-28] VITALS (8 sets, daily range): BP systolic 115–128; BP diastolic 33–62; PULSE 46–60; RESP 14–18; TEMP 97.6–98.1; O2SAT 90–96
[2023-03-28] MEDS: ACCU-CHEK COMFORT CURVE STRIP VI SCH ×6 (00:01→21:53)
[2023-03-28] MEDS: InsuLIN REG 1unit/0.01ml Soln (100units/ml) SC SCH ×6 (00:01→21:50)
[2023-03-28] MEDS: METOPROLOL TARTRATE 50 MG TAB PO SCH ×3 (00:02→21:52)
[2023-03-28] MEDS: ATORVASTATIN 20 MG TAB PO SCH ×2 (00:02→21:24)
[2023-03-28] MEDS: GABAPENTIN 300 MG CAP PO SCH ×3 (00:02→21:24)
[2023-03-28] MEDS: hydrALAZINE HCL 25 MG TAB PO SCH ×3 (00:03→21:27)
[2023-03-28] MEDS: HYDROcodone-ACET 7.5/325MG TAB PO PRN ×3 (00:12→21:22)
[2023-03-28] MEDS: SODIUM CHLORIDE 0.9% 1,000 ML IV SCH (02:26)
[2023-03-28 06:28] LABS: Basophils # (auto) 0 10 ^3/uL (0-0.2); Basophils % (auto) 0.7 % (0.0-2.0); Eosinophils # (auto) 0.2 10 ^3/uL (0-0.8); Eosinophils % (auto) 3.5 % (0.0-7.0); Hematocrit 36.4 % (36.0-46.0); Hemoglobin 11.9 g/dL (12.2-16.2); Lymphocytes # (auto) 0.7 10 ^3/uL (0.4-5.4); Lymphocytes % (auto) 14.1 % (10.0-50.0); Mean Corpuscular Hemoglobin 30.5 pg (28.0-32.0); Mean Corpuscular Hgb Conc. 32.7 g/dL (32.0-36.0); Mean Corpuscular Volume 93.3 fL (80.0-100.0); Monocytes # (auto) 0.4 10 ^3/uL (0-1.3); Monocytes % (auto) 8.4 % (0.0-12.0); Neutrophils # (auto) 3.7 10 ^3/uL (1.6-8.6); Neutrophils % (auto) 73.3 % (37.0-80.0); Nucleated Red Blood Cells % 0.2 %; Red Cell Distribution Width 15.3 % (11.8-14.3)
[2023-03-28 06:38] LABS: Alanine Aminotransferase 13 U/L (7-40); Alkaline Phosphatase 67 U/L (46-116); Anion Gap 10 (5-15); Aspartate Aminotransferase 25 U/L (13-40); Bilirubin, Total 0.4 mg/dL (0.2-1.0); Blood Urea Nitrogen 20 mg/dL (9-23); Calcium 9.5 mg/dL (8.7-10.4); Carbon Dioxide 18 mmol/L (20-30); Chloride 109 mmol/L (98-107); Sodium 137 mmol/L (136-145); Total Protein 6.3 g/dL (5.7-8.2)
[2023-03-28 07:07] LABS: Glucose 138 mg/dL (74-106)
[2023-03-28 10:42] LABS: Urine Bacteria FEW /hpf (None Seen); Urine Blood Negative /uL (Negative); Urine Clarity Clear (Clear); Urine Color Yellow (Yellow); Urine Hyaline Cast FEW /lpf (0 - 2); Urine Mucus FEW (None Seen); Urine Protein, UAD TRACE (Negative); Urine Specific Gravity 1.013 (1.001-1.035); Urine Urobilinogen Normal (Negative); Urine WBC 9 /hpf (0 - 5)
[2023-03-28] MEDS: FLUoxetine HCL 20 MG CAP PO SCH (10:44)
[2023-03-28] MEDS: PANTOPRAZOLE 40 MG TAB PO SCH (10:44)
[2023-03-28] MEDS: ASPirin 81 mg TAB PO SCH (10:45)
[2023-03-28] MEDS: LOSARTAN POTASSIUM 50 MG TAB PO SCH (10:45)
[2023-03-28] MEDS: amLODIPine BESYLATE 5 MG TAB PO SCH (10:45)
[2023-03-28] MEDS: cefTRIAXone 1GM/50ML D5W 50 ML IV SCH (10:46)
[2023-03-29] VITALS (7 sets, daily range): BP systolic 139–158; BP diastolic 51–74; PULSE 50–56; RESP 16–18; TEMP 97.6–98.4; O2SAT 92–96
[2023-03-29] MEDS: InsuLIN REG 1unit/0.01ml Soln (100units/ml) SC SCH ×4 (06:21→21:21)
[2023-03-29] MEDS: ACCU-CHEK COMFORT CURVE STRIP VI SCH ×4 (06:22→21:13)
[2023-03-29] MEDS: cefTRIAXone 1GM/50ML D5W 50 ML IV SCH (09:15)
[2023-03-29] MEDS: ASPirin 81 mg TAB PO SCH (09:16)
[2023-03-29] MEDS: LOSARTAN POTASSIUM 50 MG TAB PO SCH (09:17)
[2023-03-29] MEDS: hydrALAZINE HCL 25 MG TAB PO SCH ×2 (09:17→21:13)
[2023-03-29] MEDS: METOPROLOL TARTRATE 50 MG TAB PO SCH ×2 (09:19→21:13)
[2023-03-29] MEDS: GABAPENTIN 300 MG CAP PO SCH ×2 (09:20→21:13)
[2023-03-29] MEDS: amLODIPine BESYLATE 5 MG TAB PO SCH (09:20)
[2023-03-29] MEDS: PANTOPRAZOLE 40 MG TAB PO SCH (09:20)
[2023-03-29] MEDS: ENOXAPARIN SOD 40 MG/0.4 ML SYRINGE SC SCH (09:21)
[2023-03-29] MEDS: FLUoxetine HCL 20 MG CAP PO SCH (09:21)
[2023-03-29] MEDS: HYDROcodone-ACET 7.5/325MG TAB PO PRN ×2 (09:21→19:45)
[2023-03-29] MEDS: ATORVASTATIN 20 MG TAB PO SCH (21:13)
[2023-03-30] VITALS (8 sets, daily range): BP systolic 98–153; BP diastolic 43–110; PULSE 46–70; RESP 16–20; TEMP 97.9–98.8; O2SAT 93–96
[2023-03-30] MEDS: InsuLIN REG 1unit/0.01ml Soln (100units/ml) SC SCH ×4 (06:24→21:46)
[2023-03-30] MEDS: ACCU-CHEK COMFORT CURVE STRIP VI SCH ×4 (06:26→21:39)
[2023-03-30] MEDS: cefTRIAXone 1GM/50ML D5W 50 ML IV SCH (09:02)
[2023-03-30] MEDS: LOSARTAN POTASSIUM 50 MG TAB PO SCH (09:19)
[2023-03-30] MEDS: ASPirin 81 mg TAB PO SCH (09:20)
[2023-03-30] MEDS: FLUoxetine HCL 20 MG CAP PO SCH (09:21)
[2023-03-30] MEDS: hydrALAZINE HCL 25 MG TAB PO SCH ×2 (09:21→21:40)
[2023-03-30] MEDS: PANTOPRAZOLE 40 MG TAB PO SCH (09:21)
[2023-03-30] MEDS: amLODIPine BESYLATE 5 MG TAB PO SCH (09:21)
[2023-03-30] MEDS: GABAPENTIN 300 MG CAP PO SCH ×2 (09:21→21:38)
[2023-03-30] MEDS: METOPROLOL TARTRATE 50 MG TAB PO SCH ×2 (09:22→21:40)
[2023-03-30] MEDS: ENOXAPARIN SOD 40 MG/0.4 ML SYRINGE SC SCH (09:23)
[2023-03-30] MEDS: HYDROcodone-ACET 7.5/325MG TAB PO PRN ×2 (10:06→21:39)
[2023-03-30] MEDS: ATORVASTATIN 20 MG TAB PO SCH (21:38)
[2023-03-31] VITALS (8 sets, daily range): BP systolic 110–162; BP diastolic 52–69; PULSE 51–74; RESP 16–20; TEMP 97.9–98.4; O2SAT 90–96
[2023-03-31] MEDS: ACCU-CHEK COMFORT CURVE STRIP VI SCH ×4 (06:36→21:53)
[2023-03-31] MEDS: InsuLIN REG 1unit/0.01ml Soln (100units/ml) SC SCH ×4 (06:40→21:49)
[2023-03-31] MEDS: cefTRIAXone 1GM/50ML D5W 50 ML IV SCH (08:33)
[2023-03-31] MEDS: METOPROLOL TARTRATE 50 MG TAB PO SCH ×2 (09:34→22:00)
[2023-03-31] MEDS: LOSARTAN POTASSIUM 50 MG TAB PO SCH (09:35)
[2023-03-31] MEDS: FLUoxetine HCL 20 MG CAP PO SCH (09:35)
[2023-03-31] MEDS: hydrALAZINE HCL 25 MG TAB PO SCH ×2 (09:35→21:54)
[2023-03-31] MEDS: ASPirin 81 mg TAB PO SCH (09:35)
[2023-03-31] MEDS: PANTOPRAZOLE 40 MG TAB PO SCH (09:35)
[2023-03-31] MEDS: ENOXAPARIN SOD 40 MG/0.4 ML SYRINGE SC SCH (09:36)
[2023-03-31] MEDS: amLODIPine BESYLATE 5 MG TAB PO SCH (09:36)
[2023-03-31] MEDS: GABAPENTIN 300 MG CAP PO SCH ×2 (09:36→21:53)
[2023-03-31] MEDS: HYDROcodone-ACET 7.5/325MG TAB PO PRN ×2 (12:04→21:54)
[2023-03-31] MEDS: ATORVASTATIN 20 MG TAB PO SCH (21:53)
[2023-03-31] MEDS: DOCUSATE SOD 100 MG CAP PO PRN (21:54)
[2023-04-01 05:00] VITALS: BP 154/42; PULSE 56; RESP 17; TEMP 98.2; O2SAT 91
[2023-04-01] MEDS: ACCU-CHEK COMFORT CURVE STRIP VI SCH ×4 (05:57→22:27)
[2023-04-01] MEDS: InsuLIN REG 1unit/0.01ml Soln (100units/ml) SC SCH ×4 (05:57→22:27)
[2023-04-01] MEDS: HYDROcodone-ACET 7.5/325MG TAB PO PRN ×3 (05:58→23:45)
[2023-04-01 08:00] VITALS: PULSE 59
[2023-04-01 09:00] VITALS: BP 137/49; PULSE 61; RESP 15; TEMP 98.1; O2SAT 94
[2023-04-01 09:38] LABS: Alanine Aminotransferase 14 U/L (7-40); Albumin 3.8 g/dL (3.2-4.8); Alkaline Phosphatase 67 U/L (46-116); Anion Gap 4 (5-15); Aspartate Aminotransferase 13 U/L (13-40); BUN/Creatinine Ratio 23.8 (10.0-20.0); Bilirubin, Total 0.4 mg/dL (0.2-1.0); Blood Urea Nitrogen 20 mg/dL (9-23); Calcium 10.3 mg/dL (8.5-10.1); Carbon Dioxide 25 mmol/L (20-30); Chloride 107 mmol/L (98-107); Glucose 156 mg/dL (74-106); Potassium 4.4 mmol/L (3.5-5.1); Sodium 136 mmol/L (136-145); Total Protein 5.9 g/dL (5.7-8.2)
[2023-04-01] MEDS: cefTRIAXone 1GM/50ML D5W 50 ML IV SCH (09:40)
[2023-04-01 09:59] LABS: Basophils # (auto) 0 10 ^3/uL (0-0.2); Eosinophils # (auto) 0.3 10 ^3/uL (0-0.8); Hemoglobin 12.6 g/dL (12.2-16.2); Lymphocytes # (auto) 0.8 10 ^3/uL (0.4-5.4); Lymphocytes % (auto) 18.3 % (10.0-50.0); Mean Corpuscular Hemoglobin 30.7 pg (28.0-32.0); Mean Corpuscular Volume 90.5 fL (80.0-100.0); Monocytes # (auto) 0.5 10 ^3/uL (0-1.3); Neutrophils # (auto) 2.9 10 ^3/uL (1.6-8.6); Neutrophils % (auto) 64.7 % (37.0-80.0); Nucleated Red Blood Cells % 0.2 %; Red Blood Cells 4.09 10^6/uL (4.0-5.20); Red Cell Distribution Width 14.7 % (11.8-14.3); White Blood Cell 4.6 10^3/uL (4.4-10.8)
[2023-04-01 10:05] LABS: Magnesium 1.4 mg/dL (1.6-2.6)
[2023-04-01] MEDS: ASPirin 81 mg TAB PO SCH (11:23)
[2023-04-01] MEDS: hydrALAZINE HCL 25 MG TAB PO SCH ×2 (11:23→22:26)
[2023-04-01] MEDS: LOSARTAN POTASSIUM 50 MG TAB PO SCH (11:24)
[2023-04-01] MEDS: GABAPENTIN 300 MG CAP PO SCH ×2 (11:24→22:26)
[2023-04-01] MEDS: METOPROLOL TARTRATE 50 MG TAB PO SCH ×2 (11:24→22:00)
[2023-04-01] MEDS: amLODIPine BESYLATE 5 MG TAB PO SCH (11:25)
[2023-04-01] MEDS: FLUoxetine HCL 20 MG CAP PO SCH (11:25)
[2023-04-01] MEDS: ENOXAPARIN SOD 40 MG/0.4 ML SYRINGE SC SCH (11:25)
[2023-04-01] MEDS: PANTOPRAZOLE 40 MG TAB PO SCH (11:25)
[2023-04-01] MEDS: DOCUSATE SOD 100 MG CAP PO PRN (11:26)
[2023-04-01] MEDS ORDERED: MAGNESIUM SULFATE 1GM/100ML 100 ML IV ONE (11:30)
[2023-04-01 12:42] VITALS: BP 146/52; PULSE 53; RESP 15; TEMP 98.1; O2SAT 94
[2023-04-01] MEDS ORDERED: MAGNESIUM OXIDE 400 MG TAB PO ONE (16:30)
[2023-04-01 16:42] VITALS: BP 133/49; PULSE 45; RESP 17; TEMP 98.1; O2SAT 97
[2023-04-01] MEDS: METHOCARBAMOL 500 MG TAB PO PRN (17:49)
[2023-04-01 22:00] VITALS: BP 135/37; PULSE 50; RESP 18; TEMP 97.9; O2SAT 94
[2023-04-01] MEDS: ATORVASTATIN 20 MG TAB PO SCH (22:26)
[2023-04-02 05:00] VITALS: BP 113/53; PULSE 54; RESP 19; TEMP 97.7; O2SAT 95
[2023-04-02] MEDS: METHOCARBAMOL 500 MG TAB PO PRN ×2 (05:46→16:48)
[2023-04-02] MEDS: ACCU-CHEK COMFORT CURVE STRIP VI SCH ×3 (06:20→16:53)
[2023-04-02] MEDS: InsuLIN REG 1unit/0.01ml Soln (100units/ml) SC SCH ×3 (06:20→17:09)
[2023-04-02] MEDS: HYDROcodone-ACET 7.5/325MG TAB PO PRN ×2 (08:49→17:17)
[2023-04-02 09:43] VITALS: BP 142/46; PULSE 51; RESP 20; TEMP 98.3; O2SAT 94
[2023-04-02] MEDS: cefTRIAXone 1GM/50ML D5W 50 ML IV SCH (10:41)
[2023-04-02] MEDS: ENOXAPARIN SOD 40 MG/0.4 ML SYRINGE SC SCH (10:41)
[2023-04-02] MEDS: ASPirin 81 mg TAB PO SCH (10:42)
[2023-04-02] MEDS: PANTOPRAZOLE 40 MG TAB PO SCH (10:42)
[2023-04-02] MEDS: FLUoxetine HCL 20 MG CAP PO SCH (10:42)
[2023-04-02] MEDS: hydrALAZINE HCL 25 MG TAB PO SCH (10:42)
[2023-04-02] MEDS: LOSARTAN POTASSIUM 50 MG TAB PO SCH (10:43)
[2023-04-02] MEDS: METOPROLOL TARTRATE 50 MG TAB PO SCH ×2 (10:44→11:43)
[2023-04-02] MEDS: GABAPENTIN 300 MG CAP PO SCH (10:44)
[2023-04-02] MEDS: amLODIPine BESYLATE 5 MG TAB PO SCH (10:44)
[2023-04-02 13:00] VITALS: BP 145/44; PULSE 50; RESP 20; TEMP 97.6; O2SAT 91
[2023-04-02 17:00] VITALS: BP 153/58; PULSE 50; RESP 17; TEMP 97.6; O2SAT 94
[2023-04-02 17:52] VITALS: BP 146/44; PULSE 50; RESP 18; TEMP 36.4; O2SAT 96
== END 2023-04-02 18:43 | disposition home health service (06) | DRG 542 ==
LOC: ER 11:01 → TELE 14:32 → TELE-WESTW 03-28 11:35 → WEST WING 04-01 22:04
PROVIDERS: ADMIT Internal Medicine; ATTEND Student in an Organized Health Care Education/Training Program
DX: M48.56XA Collapsed vertebra, not elsewhere classified, lumbar region, initial encounter for fracture (principal); I21.A1 Myocardial infarction type 2; G91.2 (Idiopathic) normal pressure hydrocephalus; N30.00 Acute cystitis without hematuria; N17.9 Acute kidney failure, unspecified; M48.55XA Collapsed vertebra, not elsewhere classified, thoracolumbar region, initial encounter for fracture; G89.29 Other chronic pain; E83.42 Hypomagnesemia; M54.9 Dorsalgia, unspecified; E11.9 Type 2 diabetes mellitus without complications; J45.909 Unspecified asthma, uncomplicated; G31.84 Mild cognitive impairment of uncertain or unknown etiology; F32.A Depression, unspecified; F41.9 Anxiety disorder, unspecified; K21.9 Gastro-esophageal reflux disease without esophagitis; M47.819 Spondylosis without myelopathy or radiculopathy, site unspecified; E78.00 Pure hypercholesterolemia, unspecified; F17.200 Nicotine dependence, unspecified, uncomplicated; N28.1 Cyst of kidney, acquired; I11.0 Hypertensive heart disease with heart failure; I50.9 Heart failure, unspecified; M43.16 Spondylolisthesis, lumbar region; M51.36 Other intervertebral disc degeneration, lumbar region; Z90.710 Acquired absence of both cervix and uterus; Z95.1 Presence of aortocoronary bypass graft; Z88.2 Allergy status to sulfonamides; Z88.8 Allergy status to other drugs, medicaments and biological substances; Z91.041 Radiographic dye allergy status; Z88.5 Allergy status to narcotic agent; Z91.013 Allergy to seafood; Z79.1 Long term (current) use of non-steroidal anti-inflammatories (NSAID); Z79.899 Other long term (current) drug therapy; Z86.73 Personal history of transient ischemic attack (TIA), and cerebral infarction without residual deficits; Z90.49 Acquired absence of other specified parts of digestive tract; Z83.3 Family history of diabetes mellitus; Z82.49 Family history of ischemic heart disease and other diseases of the circulatory system; Z88.3 Allergy status to other anti-infective agents
CPT/HCPCS: 36415; 70450; 71045; 72110; 72148; 80053; 81001; 82306; 82962; 83036; 83735; 83880; 84484; 85025; 85049; 85610; 85730; 87086; 93005; 97110; 97116; 97163; 97530; G0378; J0696; J1815

== ENCOUNTER → 2023-05-16 | Outpatient (CLI) | payer OTHER, MEDICAID ==
[~2023-05-16] MED LIST changes: +AMLO1TAB23 PO; +ARIP5TAB36 PO; +FLUO40CA PO; -FLUT250M2 INH; +GABA-1250 PO; +GLIP5TAB12 PO; +HYDR25TA87 PO
== END | disposition home or self-care (01) ==
LOC: LAB 12:00
PROVIDERS: ATTEND Family Medicine
DX: L57.8 Other skin changes due to chronic exposure to nonionizing radiation (principal)
CPT/HCPCS: 88302

== ENCOUNTER → 2023-07-09 | Outpatient (CLI) | payer OTHER ==
[2023-07-09 10:44] LABS: Cholesterol 114 mg/dL (< 200); Triglycerides 104 mg/dL (< 150)
[2023-07-09 10:45] LABS: LDL Cholesterol 55 mg/dL (< 100)
[2023-07-09 10:46] LABS: HDL Cholesterol 38 mg/dL (40-59)
[2023-07-09 11:04] LABS: Free T4 (Free Thyroxine) 1.15 ng/dL (0.89-1.76)
== END | disposition home or self-care (01) ==
LOC: LAB 09:32
PROVIDERS: ATTEND Internal Medicine
DX: E78.5 Hyperlipidemia, unspecified (principal); G62.9 Polyneuropathy, unspecified
CPT/HCPCS: 36415; 80061; 82607; 84439; 84443

== ENCOUNTER → 2023-08-01 | Outpatient (CLI) | payer OTHER | END | disposition home or self-care (01) | LOC: LAB 08:17 | PROVIDERS: ATTEND Family Medicine | DX: L72.11 Pilar cyst (principal) ==